=== PATIENT | male | born 1960 | race Caucasian/White ===

== ENCOUNTER 2018-04-30 01:51 | Inpatient (IN) | payer MEDICARE, MEDICAID ==
--- NOTE | 2018-04-30 01:58 | C.PDOC ---
History Of Present Illness As per ems pt became short of breath, that woke him from sleep/. Received 40 mg iv lasix and 1 inch of nitro paste. Placed on bipap, sturating to 100%. Denies any chest pain, but slow to respond. No signs of trauma. Moves all extremities Time Seen by Provider: 04/30/18 01:58 Chief Complaint (Nursing): Respiratory Distress History Per: EMS History/Exam Limitations: clinical condition Onset/Duration Of Symptoms: Days Current Symptoms Are (Timing): Worse Initiating Event: Other Exacerbating Factor(s): Exertion, Laying Flat Current Respiratory Medications: See Home Med List Severity: Severe Pain Scale Rating Of: 8 Associated Symptoms: denies: Fever, Chills Reports Recently: Treated By A Physician Recent travel outside of the [place]: No Additional History Per: EMS Past Medical History Family History: States: No Known Family Hx Review Of Systems Review Of Systems: ROS cannot be obtained secondary to pt's inabilty to answer questions. Physical Exam - Physical Exam Appears: In Acute Distress Skin: Warm, Dry Head: Normacephalic Eye(s): bilateral: Normal Inspection Oral Mucosa: Moist Neck: Supple Chest: Symmetrical Cardiovascular: Rhythm Regular Respiratory: Decreased Breath Sounds, Rales, Rhonchi, No Wheezing Gastrointestinal/Abdominal: Soft, No Tenderness, No Distention Back: Normal Inspection Extremity: Pedal Edema Extremity: Bilateral: Atraumatic Pulses: Left Dorsalis Pedis: Normal, Right Dorsalis Pedis: Normal Neurological/Psych: Oriented x3, Slow To Respond With Command Gait: Unable To Assess ED Course And Treatment - Laboratory Results Result Diagrams: 04/30/18 02:21 04/30/18 02:21 ECG: Interpreted By Me, Viewed By Me ECG Rhythm: Sinus Rhythm (94), Nonspecific Changes (inf lat ischemic changes) O2 Sat by Pulse Oximetry: 100 Pulse Ox Interpretation: Normal Critical Care Time - Critical Care Note Total Time (in mins): 30 Documented critical care: time excludes all time spent performing seperately billable procedures. Disposition Discussed With : Christophe Mckenna Comment: accepted the pt on his service and took over the care at 3:20 AM Doctor Will See Patient In The: Hospital Counseled Patient/Family Regarding: Studies Performed, Diagnosis - Disposition Disposition: HOSPITALIZED Disposition Time: 01:58 Condition: FAIR Forms: [employer] (Romanian) - POA Present On Arrival: Poor Glycemic Control - Clinical Impression Clinical Impression: Congestive heart failure, Respiratory distress, acute Decision To Admit - Pt Status Changed To: Hospital Disposition Of: Inpatient - Admit Certification Admit to Inpatient:: After my assessment, the patient will require hospitalization for at least two midnights. This is because of the severity of symptoms shown, intensity of services needed, and/or the medical risk in this patient being treated as an outpatient. - InPatient: Physician Admission Certification: I certify that this patient requires 2 or more midnights of care for the following reason:: After my assessment, the patient will require hospitalization for at least two midnights. This is because of the severity of symptoms shown, intensity of services needed, and/or the medical risk in this patient being treated as an outpatient. - . Bed Request Type: Telemetry Admitting Physician: Christophe Mckenna Patient Diagnosis: Congestive heart failure, Respiratory distress, acute
[2018-04-30] MEDS: Albuterol-Ipratrop 3 mg / 0.5 (3 ml) UD IH SCH ×2 (02:15→02:30)
[2018-04-30 02:26] LABS: BASO # 0.1 K/uL (0.0-0.2); EOS # 0.2 K/uL (0.0-0.7); HEMOGLOBIN 12.8 g/dL (12.0-18.0); LYMPH # 3.9 K/uL (1.0-4.3); LYMPH % 35.5 % (20.0-40.0); MEAN CELL VOLUME 82.9 fL (80.0-94.0); MEAN CORPUSCULAR HEMOGLOBIN 26.9 pg (27.0-31.0); MEAN CORPUSCULAR HGB CONC 32.4 g/dL (33.0-37.0); MEAN PLATELET VOLUME 10.2 fL (7.2-11.7); MONO # 0.8 K/uL (0.0-0.8); MONO % 6.9 % (0.0-10.0); NEUT # 5.9 K/uL (1.8-7.0); NEUT % 54.6 % (50.0-75.0); NRBC % 0.1 % (0.0-2.0); RBC 4.77 Mil/uL (4.40-5.90); RED CELL DISTRIBUTION WIDTH 15.2 % (11.5-14.5); WHITE BLOOD COUNT 10.9 K/uL (4.8-10.8)
[2018-04-30 02:34] LABS: INR 1.3; PROTHROMBIN TIME 13.8 SECONDS (9.7-12.2)
[2018-04-30 02:36] LABS: ABG ALLEN TEST POS; ARTERIAL BLOOD GAS HCO3 24.6 mmol/L (21-28); ARTERIAL BLOOD GAS O2 SAT 98.8 % (95-98); ARTERIAL BLOOD GAS PCO2 51 mm/Hg (35-45); ARTERIAL BLOOD GAS PH 7.32 (7.35-7.45); ARTERIAL BLOOD GAS PO2 133 mm/Hg (80-100); ARTERIAL BLOOD GAS TCO2 27.9 mmol/L (22-28)
[2018-04-30 02:39] LABS: ALB/GLOB RATIO 1.3 (1.0-2.1); ALBUMIN 4.5 g/dL (3.5-5.0); ALT/SGPT 29 U/L (21-72); AST/SGOT 32 U/L (17-59); BLOOD UREA NITROGEN 19 mg/dL (9-20); CALCIUM 8.2 mg/dl (8.6-10.4); GFR NON-AFRICAN AMERICAN > 60
[2018-04-30 02:50] LABS: B-TYPE NATRIURETIC PEPTIDE 1430 pg/mL (0-900)
[2018-04-30 03:35] LABS: URINE BILIRUBIN NEGATIVE (NEGATIVE); URINE BLOOD NEGATIVE (NEGATIVE); URINE CLARITY Clear (Clear); URINE COLOR Colorless (YELLOW); URINE GLUCOSE (UA) NORMAL (Normal); URINE HYALINE CAST 0-2 /lpf (0-2); URINE LEUKOCYTE ESTERASE NEG Leu/uL (Negative); URINE PROTEIN 2+ mg/dL (NEGATIVE); URINE UROBILINOGEN NORMAL mg/dL (0.2-1.0)
[2018-04-30] MEDS ORDERED: Albuterol-Ipratrop 3 mg / 0.5 (3 ml) UD ONE (04:50)
[2018-04-30] MEDS ORDERED: Enoxaparin 150 mg Syringe SC SCH (10:00)
[2018-04-30] MEDS ORDERED: (Novolin R) Insulin Human Regular 100 units/ml vial SC SCH (11:30)
--- NOTE | 2018-04-30 11:31 | CP.PCM.CON ---
History of Present Illness - History of Present Illness History of Present Illness: Consultation for evaluation of CHF exacerbation HPI: Wander is a 57-year-old male with past medical history significant for CAD sta tus post CABG 13 years ago at [facility] hypertension dyslipidemia diabetes mellitus presented with complains of PND is that woke him up from sleep some sleep at baseline a major flexion class II dyspnea denied having any ischemic symptoms in the past no cardiac workup done follows with Dr. Doll his BNP on presentation was 1430 EKG showed left bundle with left axis deviation with nonspecific ST changes. He was given a dose of IV Lasix in the emergency room with improvement in his symptoms was put on BiPAP. Chest x-ray showed bilateral pulmonary congestions. Symptoms were associated with mild chest heaviness. His home meds include losartan HCTZ Cardizem Synthroid Januvia Plavix omeprazole Lipitor Toprol-XL aspirin metformin albuterol glimepiride and Flovent. Past surgical history significant for CABG x5 no history of angioplasty and stenting questionable obstructive sleep apnea. Review of Systems - Review of Systems Systems not reviewed;Unavailable: Acuity of Condition - EENT Eyes: As Per HPI Ears: As Per HPI Nose/Mouth/Throat: As Per HPI - Cardiovascular Cardiovascular: As Per HPI - Respiratory Respiratory: As Per HPI - Gastrointestinal Gastrointestinal: As Per HPI - Genitourinary Genitourinary: As Per HPI - Reproductive: Male Reproductive:Male: As Per HPI - Musculoskeletal Musculoskeletal: As Per HPI - Integumentary Integumentary: As Per HPI - Neurological Neurological: As Per HPI - Psychiatric Psychiatric: As Per HPI - Endocrine Endocrine: As Per HPI - Hematologic/Lymphatic Hematologic: As Per HPI Past Patient History - Past Social History Smoking Status: Never Smoked - CARDIAC Hx Cardiac Disorders: Yes Hx Hypertension: Yes Other/Comment: "[place] 5yrs ago" as per pt - ENDOCRINE/METABOLIC Hx Endocrine Disorders: Yes Hx Diabetes Mellitus Type 2: Yes - PSYCHIATRIC Hx Substance Use: No - SURGICAL HISTORY Hx Surgeries: Yes Other/Comment: "Multiple Bypasses" - ANESTHESIA Hx Anesthesia: Yes Hx Anesthesia Reactions: No Hx Malignant Hyperthermia: No Meds Allergies/Adverse Reactions: Allergies Allergy/AdvReac Type Severity Reaction Status Date / Time No Known Allergies Allergy Verified 04/30/18 02:02 - Medications Medications: Current Medications Albuterol/Ipratropium (Duoneb 3 Mg/0.5 Mg (3 Ml) Ud) 3 ml INH RQ4 [facility] Clopidogrel Bisulfate (Plavix) 75 mg PO DAILY [facility] Diltiazem HCl (Cardizem Cd) 240 mg PO DAILY [facility] Famotidine (Pepcid) 20 mg PO DAILY [facility] Furosemide (Lasix) 40 mg IVP DAILY [facility] Glimepiride (Amaryl) 2 mg PO DAILY [facility] Heparin Sodium (Porcine) (Heparin) 5,000 units SC Q12 [facility] Home Med (Fluticasone Propionate [Flovent Diskus]) 50 mcg IH DAILY [facility] Hydrochlorothiazide (Hydrodiuril) 25 mg PO DAILY [facility] Ceftriaxone Sodium (Rocephin Iv 1 Gm Duplex) 50 mls @ 50 mls/30 min IVPB Q24H [facility]; Protocol Azithromycin 500 mg/ Sodium (Chloride) 250 mls @ 167 mls/hr IVPB Q24H [facility]; Protocol Insulin Aspart (Novolog) 0 unit SC ACHS [facility]; Protocol Levothyroxine Sodium (Synthroid) 100 mcg PO DAILY@0630 [facility] Losartan Potassium (Cozaar) 50 mg PO DAILY [facility] Metformin HCl (Glucophage) 1,000 mg PO BIDCC [facility] Methylprednisolone (Solu-Medrol) 40 mg IVP Q8 [facility] Metoprolol Succinate (Toprol Xl) 100 mg PO DAILY [facility] Sitagliptin Phosphate (Januvia) 100 mg PO DAILY [facility] Physical Exam - Constitutional Appears: Well - Head Exam Head Exam: ATRAUMATIC, NORMAL INSPECTION, NORMOCEPHALIC - Eye Exam Eye Exam: EOMI, Normal appearance, PERRL Pupil Exam: NORMAL ACCOMODATION, PERRL - ENT Exam ENT Exam: Mucous Membranes Moist, Normal Exam - Neck Exam Neck exam: Positive for: Normal Inspection - Respiratory Exam Respiratory Exam: Clear to Auscultation Bilateral, NORMAL BREATHING PATTERN - Cardiovascular Exam Cardiovascular Exam: REGULAR RHYTHM, RRR, +S1, +S2 - GI/Abdominal Exam GI & Abdominal Exam: Normal Bowel Sounds, Soft. absent: Tenderness - Extremities Exam Extremities exam: Positive for: normal inspection - Back Exam Back exam: NORMAL INSPECTION - Neurological Exam Neurological exam: Alert, CN II-XII Intact, Normal Gait, Oriented x3, Reflexes Normal - Psychiatric Exam Psychiatric exam: Normal Affect, Normal Mood - Skin Skin Exam: Dry, Intact, Normal Color, Warm Results - Vital Signs Recent Vital Signs: Last Vital Signs Temp 97.5 F L 04/30/18 08:18 Pulse 92 H 04/30/18 09:00 Resp 20 04/30/18 08:18 BP 144/82 04/30/18 08:18 Pulse Ox 100 04/30/18 08:18 - Labs Result Diagrams: 04/30/18 02:21 04/30/18 02:21 Labs: Laboratory Results - last 24 hr 04/30/18 04/30/18 04/30/18 02:21 02:21 02:21 WBC 10.9 H RBC 4.77 Hgb 12.8 Hct 39.6 MCV 82.9 MCH 26.9 L MCHC 32.4 L RDW 15.2 H Plt Count 284 MPV 10.2 Neut % (Auto) 54.6 Lymph % (Auto) 35.5 [place] % (Auto) 6.9 Eos % (Auto) 2.0 Baso % (Auto) 1.0 Neut # (Auto) 5.9 Lymph # (Auto) 3.9 [place] # (Auto) 0.8 Eos # (Auto) 0.2 Baso # (Auto) 0.1 PT 13.8 H INR 1.3 APTT 28 Puncture Site pCO2 pO2 HCO3 ABG pH ABG Total CO2 ABG O2 Saturation ABG Base Excess Baldomero Test ABG Potassium A-a O2 Difference Respiratory Index Sodium 141 Chloride 102 Glucose Lactate Vent Mode FiO2 Inspiratory BiPAP Expiratory BiPAP Potassium 4.2 Carbon Dioxide 27 Anion Gap 16 BUN 19 Creatinine 0.8 Est GFR ( Amer) > 60 Est GFR (Non-Af Amer) > 60 Random Glucose 225 H Calcium 8.2 L Magnesium 1.7 Total Bilirubin 0.6 AST 32 ALT 29 Alkaline Phosphatase 70 Troponin I 0.0230 NT-Pro-B Natriuret Pep 1430 H Total Protein 7.8 Albumin 4.5 Globulin 3.4 Albumin/Globulin Ratio 1.3 Arterial Blood Potassium Urine Color Urine Clarity Urine pH Ur Specific [place] Urine Protein Urine Glucose (UA) Urine Ketones Urine Blood Urine Nitrate Urine Bilirubin Urine Urobilinogen Ur Leukocyte Esterase Urine WBC (Auto) Urine RBC (Auto) Hyaline Casts 04/30/18 04/30/18 02:21 03:23 WBC RBC Hgb Hct MCV MCH MCHC RDW Plt Count MPV Neut % (Auto) Lymph % (Auto) [place] % (Auto) Eos % (Auto) Baso % (Auto) Neut # (Auto) Lymph # (Auto) [place] # (Auto) Eos # (Auto) Baso # (Auto) PT INR APTT Puncture Site R rad pCO2 51 H pO2 133 H HCO3 24.6 ABG pH 7.32 L ABG Total CO2 27.9 ABG O2 Saturation 98.8 H ABG Base Excess -0.5 Baldomero Test Pos ABG Potassium 3.0 L A-a O2 Difference 160.0 Respiratory Index 1.2 Sodium 142.0 Chloride 108.0 H Glucose 184 H Lactate 1.1 Vent Mode Bipap FiO2 50.0 Inspiratory BiPAP 10 Expiratory BiPAP 5 Potassium Carbon Dioxide Anion Gap BUN Creatinine Est GFR ( Amer) Est GFR (Non-Af Amer) Random Glucose Calcium Magnesium Total Bilirubin AST ALT Alkaline Phosphatase Troponin I NT-Pro-B Natriuret Pep Total Protein Albumin Globulin Albumin/Globulin Ratio Arterial Blood Potassium 3.0 L Urine Color Colorless Urine Clarity Clear Urine pH 7.0 Ur Specific [place] 1.006 Urine Protein 2+ H Urine Glucose (UA) Normal Urine Ketones Negative Urine Blood Negative Urine Nitrate Negative Urine Bilirubin Negative Urine Urobilinogen Normal Ur Leukocyte Esterase Neg Urine WBC (Auto) < 1 Urine RBC (Auto) 1 Hyaline Casts 0-2 Assessment & Plan (1) Congestive heart failure Assessment and Plan: Echo stress testing IV lasix cont bb, arbs Status: Acute (2) CAD (coronary artery disease) Assessment and Plan: cont asa, plavix cont statins cont bb check FLP Status: Acute (3) Hx of CABG Status: Acute (4) HTN (hypertension) Status: Acute (5) Dyslipidemia Assessment and Plan: chest FLP cont statins Status: Acute (6) Respiratory distress, acute Status: Acute
[2018-04-30] MEDS: diltiaZEM 240 mg/24 Hours CD Cap PO SCH (11:41)
[2018-04-30] MEDS: Levothyroxine 100 MCG TAB PO SCH (11:42)
[2018-04-30] MEDS: Metoprolol Succinate 100 mg XL Tab PO SCH (11:42)
[2018-04-30] MEDS: cefTRIAXone IV 1 gm in Dextros 50 ML IVPB SCH (11:51)
[2018-04-30] MEDS ORDERED: Albuterol-Ipratrop 3 mg / 0.5 (3 ml) UD INH SCH (12:00)
[2018-04-30] MEDS: MethylPREDNISolone 40 mg Vial IVP SCH ×3 (12:10→21:44)
--- NOTE | 2018-04-30 12:47 | RAD ---
Date of service: 04/30/2018 PROCEDURE: CHEST RADIOGRAPH, 1 VIEW HISTORY: SOB COMPARISON: None available. FINDINGS: LUNGS: Clear. PLEURA: No pneumothorax or pleural fluid seen. CARDIOVASCULAR: Mild cardiomegaly. There is calcification of the thoracic aortic arch. Sternotomy wires. No congestive change. OSSEOUS STRUCTURES: No significant abnormalities. VISUALIZED UPPER ABDOMEN: Normal. OTHER FINDINGS: None. IMPRESSION: No active disease.
[2018-04-30] MEDS: (Novolog) Insulin Aspart, Recombinant 100 u/ml 10 ml vial SC SCH ×3 (13:39→21:37)
[2018-04-30] MEDS: Azithromycin 500 MG in Sodium Chloride 0.9% 250 ML IVPB SCH (13:41)
[2018-04-30] MEDS: Albuterol-Ipratrop 3 mg / 0.5 (3 ml) UD INH SCH ×3 (15:00→19:54)
--- NOTE | 2018-04-30 15:42 | CP.PCM.HP ---
Past Patient History - Past Medical History & Family History Past Medical History?: Yes - Past Social History Smoking Status: Never Smoked - CARDIAC Hx Hypertension: Yes - PULMONARY Hx Respiratory Disorders: No - NEUROLOGICAL Hx Neurological Disorder: No - HEENT Hx HEENT Problems: No - RENAL Hx Chronic Kidney Disease: No - ENDOCRINE/METABOLIC Hx Endocrine Disorders: Yes Hx Diabetes Mellitus Type 2: Yes - HEMATOLOGICAL/ONCOLOGICAL Hx Blood Disorders: No - INTEGUMENTARY Hx Dermatological Problems: No - MUSCULOSKELETAL/RHEUMATOLOGICAL Hx Musculoskeletal Disorders: No Hx Falls: No - GASTROINTESTINAL Hx Gastrointestinal Disorders: No - GENITOURINARY/GYNECOLOGICAL Hx Genitourinary Disorders: No - PSYCHIATRIC Hx Psychophysiologic Disorder: No Hx Substance Use: No - SURGICAL HISTORY Hx Surgeries: Yes Hx Coronary Artery Bypass Graft: Yes Other/Comment: "Multiple Bypasses" - ANESTHESIA Hx Anesthesia: Yes Hx Anesthesia Reactions: No Hx Malignant Hyperthermia: No Has any member of the family had a problem w/ anesthesia?: No Meds Allergies/Adverse Reactions: Allergies Allergy/AdvReac Type Severity Reaction Status Date / Time No Known Allergies Allergy Verified 04/30/18 02:02 Physical Exam - Constitutional Appears: Well - Head Exam Head Exam: ATRAUMATIC, NORMAL INSPECTION, NORMOCEPHALIC - Eye Exam Eye Exam: EOMI, Normal appearance, PERRL Pupil Exam: NORMAL ACCOMODATION, PERRL - ENT Exam ENT Exam: Mucous Membranes Moist, Normal Exam - Neck Exam Neck exam: Positive for: Normal Inspection - Respiratory Exam Respiratory Exam: Decreased Breath Sounds - Cardiovascular Exam Cardiovascular Exam: REGULAR RHYTHM, +S1, +S2 - GI/Abdominal Exam GI & Abdominal Exam: Diminished Bowel Sounds, Soft - Rectal Exam Rectal Exam: Deferred Results - Vital Signs Recent Vital Signs: Last Vital Signs Temp 97.5 F L 04/30/18 08:18 Pulse 70 04/30/18 13:50 Resp 20 04/30/18 08:18 BP 139/75 04/30/18 11:44 Pulse Ox 100 04/30/18 13:50 - Labs Result Diagrams: 04/30/18 02:21 04/30/18 02:21 Labs: Laboratory Results - last 24 hr 04/30/18 04/30/18 04/30/18 02:21 02:21 02:21 WBC 10.9 H RBC 4.77 Hgb 12.8 Hct 39.6 MCV 82.9 MCH 26.9 L MCHC 32.4 L RDW 15.2 H Plt Count 284 MPV 10.2 Neut % (Auto) 54.6 Lymph % (Auto) 35.5 [place] % (Auto) 6.9 Eos % (Auto) 2.0 Baso % (Auto) 1.0 Neut # (Auto) 5.9 Lymph # (Auto) 3.9 [place] # (Auto) 0.8 Eos # (Auto) 0.2 Baso # (Auto) 0.1 PT 13.8 H INR 1.3 APTT 28 Puncture Site pCO2 pO2 HCO3 ABG pH ABG Total CO2 ABG O2 Saturation ABG Base Excess Baldomero Test ABG Potassium A-a O2 Difference Respiratory Index Sodium 141 Chloride 102 Glucose Lactate Vent Mode FiO2 Inspiratory BiPAP Expiratory BiPAP Potassium 4.2 Carbon Dioxide 27 Anion Gap 16 BUN 19 Creatinine 0.8 Est GFR ( Amer) > 60 Est GFR (Non-Af Amer) > 60 Random Glucose 225 H Calcium 8.2 L Magnesium 1.7 Total Bilirubin 0.6 AST 32 ALT 29 Alkaline Phosphatase 70 Troponin I 0.0230 NT-Pro-B Natriuret Pep 1430 H Total Protein 7.8 Albumin 4.5 Globulin 3.4 Albumin/Globulin Ratio 1.3 Arterial Blood Potassium Urine Color Urine Clarity Urine pH Ur Specific [place] Urine Protein Urine Glucose (UA) Urine Ketones Urine Blood Urine Nitrate Urine Bilirubin Urine Urobilinogen Ur Leukocyte Esterase Urine WBC (Auto) Urine RBC (Auto) Hyaline Casts 04/30/18 04/30/18 02:21 03:23 WBC RBC Hgb Hct MCV MCH MCHC RDW Plt Count MPV Neut % (Auto) Lymph % (Auto) [place] % (Auto) Eos % (Auto) Baso % (Auto) Neut # (Auto) Lymph # (Auto) [place] # (Auto) Eos # (Auto) Baso # (Auto) PT INR APTT Puncture Site R rad pCO2 51 H pO2 133 H HCO3 24.6 ABG pH 7.32 L ABG Total CO2 27.9 ABG O2 Saturation 98.8 H ABG Base Excess -0.5 Baldomero Test Pos ABG Potassium 3.0 L A-a O2 Difference 160.0 Respiratory Index 1.2 Sodium 142.0 Chloride 108.0 H Glucose 184 H Lactate 1.1 Vent Mode Bipap FiO2 50.0 Inspiratory BiPAP 10 Expiratory BiPAP 5 Potassium Carbon Dioxide Anion Gap BUN Creatinine Est GFR ( Amer) Est GFR (Non-Af Amer) Random Glucose Calcium Magnesium Total Bilirubin AST ALT Alkaline Phosphatase Troponin I NT-Pro-B Natriuret Pep Total Protein Albumin Globulin Albumin/Globulin Ratio Arterial Blood Potassium 3.0 L Urine Color Colorless Urine Clarity Clear Urine pH 7.0 Ur Specific [place] 1.006 Urine Protein 2+ H Urine Glucose (UA) Normal Urine Ketones Negative Urine Blood Negative Urine Nitrate Negative Urine Bilirubin Negative Urine Urobilinogen Normal Ur Leukocyte Esterase Neg Urine WBC (Auto) < 1 Urine RBC (Auto) 1 Hyaline Casts 0-2
--- NOTE | 2018-04-30 18:12 | CP.PCM.CON ---
History of Present Illness - History of Present Illness History of Present Illness: Pulmonology consult- chf, bipap, and respiratory distress HPI 57 year old male with pmh CHF, CAD post CABG, DM presented to ED with acute onset SOB that woke him from sleep. Patient states he was feeling slightly short of breath "as if he had a cold" for 2-3 weeks until night of admission when he became acutely short of breath. SOB worsened by laying flat and improved slightly with tripod positioning. Patient was started on bipap and arrived on floor on bipap. Ambulating with PT with spo2 96% RA. Denied fever, chills, chest pain, cough. Medications- HCTZ 25mg, diltiazem 240mg, Januvia 100mg, omeprazole 20mg, metoprolol 100mg bid, metformin 1000mg bid, losartan 50mg, levothyroxine 100mcg, hydrocortisone 30gm RC bid, glimepiride 2mg daily, Plavix 75mg, atorvastatin 80mg, ASA 325mg, ventolin 0.09mg IH q4 Allergies- NKDA PMH- as above PSH- CABG Review of Systems - Review of Systems All systems: reviewed and no additional remarkable complaints except (shortness of breath) Past Patient History - Past Medical History & Family History Past Medical History?: Yes - Past Social History Smoking Status: Never Smoked - CARDIAC Hx Hypertension: Yes - PULMONARY Hx Respiratory Disorders: No - NEUROLOGICAL Hx Neurological Disorder: No - HEENT Hx HEENT Problems: No - RENAL Hx Chronic Kidney Disease: No - ENDOCRINE/METABOLIC Hx Endocrine Disorders: Yes Hx Diabetes Mellitus Type 2: Yes - HEMATOLOGICAL/ONCOLOGICAL Hx Blood Disorders: No - INTEGUMENTARY Hx Dermatological Problems: No - MUSCULOSKELETAL/RHEUMATOLOGICAL Hx Musculoskeletal Disorders: No Hx Falls: No - GASTROINTESTINAL Hx Gastrointestinal Disorders: No - GENITOURINARY/GYNECOLOGICAL Hx Genitourinary Disorders: No - PSYCHIATRIC Hx Psychophysiologic Disorder: No Hx Substance Use: No - SURGICAL HISTORY Hx Surgeries: Yes Hx Coronary Artery Bypass Graft: Yes Other/Comment: "Multiple Bypasses" - ANESTHESIA Hx Anesthesia: Yes Hx Anesthesia Reactions: No Hx Malignant Hyperthermia: No Has any member of the family had a problem w/ anesthesia?: No Meds Allergies/Adverse Reactions: Allergies Allergy/AdvReac Type Severity Reaction Status Date / Time No Known Allergies Allergy Verified 04/30/18 02:02 - Medications Medications: Current Medications Albuterol/Ipratropium (Duoneb 3 Mg/0.5 Mg (3 Ml) Ud) 3 ml INH RQ4 [facility] Aspirin (Aspirin) 325 mg PO DAILY [facility] Last Admin: 04/30/18 13:39 Dose: 325 mg Budesonide (Pulmicort Respules) 0.25 mg INH RQ12 [facility] Clopidogrel Bisulfate (Plavix) 75 mg PO DAILY [facility] Last Admin: 04/30/18 11:41 Dose: 75 mg Diltiazem HCl (Cardizem Cd) 240 mg PO DAILY [facility] Last Admin: 04/30/18 11:41 Dose: 240 mg Famotidine (Pepcid) 20 mg PO DAILY [facility] Last Admin: 04/30/18 11:52 Dose: 20 mg Furosemide (Lasix) 40 mg IVP DAILY [facility] Last Admin: 04/30/18 11:44 Dose: 40 mg Glimepiride (Amaryl) 2 mg PO DAILY [facility] Last Admin: 04/30/18 11:42 Dose: 2 mg Heparin Sodium (Porcine) (Heparin) 5,000 units SC Q12 [facility] Last Admin: 04/30/18 11:43 Dose: 5,000 units Hydrochlorothiazide (Hydrodiuril) 25 mg PO DAILY [facility] Last Admin: 04/30/18 11:42 Dose: 25 mg Ceftriaxone Sodium (Rocephin Iv 1 Gm Duplex) 50 mls @ 50 mls/30 min IVPB Q24H [facility]; Protocol Last Admin: 04/30/18 11:51 Dose: 50 mls/30 min Azithromycin 500 mg/ Sodium (Chloride) 250 mls @ 167 mls/hr IVPB Q24H [facility]; Protocol Last Admin: 04/30/18 13:41 Dose: 167 mls/hr Insulin Aspart (Novolog) 0 unit SC ACHS [facility]; Protocol Last Admin: 04/30/18 17:01 Dose: 1 unit Levothyroxine Sodium (Synthroid) 100 mcg PO DAILY@0630 [facility] Last Admin: 04/30/18 11:42 Dose: 100 mcg Losartan Potassium (Cozaar) 50 mg PO DAILY [facility] Last Admin: 04/30/18 11:42 Dose: 50 mg Metformin HCl (Glucophage) 1,000 mg PO BIDCC [facility] Last Admin: 04/30/18 17:42 Dose: 1,000 mg Methylprednisolone (Solu-Medrol) 40 mg IVP Q8 [facility] Last Admin: 04/30/18 13:41 Dose: 40 mg Metoprolol Succinate (Toprol Xl) 100 mg PO DAILY [facility] Last Admin: 04/30/18 11:42 Dose: 100 mg Pneumococcal Polyvalent Vaccine (Pneumovax 23 Vaccine) 0.5 ml IM .ONCE ONE Stop: 05/02/18 10:01 Sitagliptin Phosphate (Januvia) 100 mg PO DAILY [facility] Last Admin: 04/30/18 11:41 Dose: 100 mg Physical Exam - Head Exam Head Exam: ATRAUMATIC, NORMOCEPHALIC - ENT Exam ENT Exam: Mucous Membranes Moist - Neck Exam Neck exam: Positive for: Normal Inspection - Respiratory Exam Respiratory Exam: Clear to Auscultation Bilateral - Cardiovascular Exam Cardiovascular Exam: REGULAR RHYTHM Results - Vital Signs Recent Vital Signs: Last Vital Signs Temp 98.7 F 04/30/18 15:00 Pulse 65 04/30/18 15:00 Resp 20 04/30/18 15:00 BP 136/66 04/30/18 15:00 Pulse Ox 95 04/30/18 15:00 - Labs Result Diagrams: 04/30/18 02:21 04/30/18 02:21 Labs: Laboratory Results - last 24 hr 04/30/18 04/30/18 04/30/18 02:21 02:21 02:21 WBC 10.9 H RBC 4.77 Hgb 12.8 Hct 39.6 MCV 82.9 MCH 26.9 L MCHC 32.4 L RDW 15.2 H Plt Count 284 MPV 10.2 Neut % (Auto) 54.6 Lymph % (Auto) 35.5 [place] % (Auto) 6.9 Eos % (Auto) 2.0 Baso % (Auto) 1.0 Neut # (Auto) 5.9 Lymph # (Auto) 3.9 [place] # (Auto) 0.8 Eos # (Auto) 0.2 Baso # (Auto) 0.1 PT 13.8 H INR 1.3 APTT 28 Puncture Site pCO2 pO2 HCO3 ABG pH ABG Total CO2 ABG O2 Saturation ABG Base Excess Baldomero Test ABG Potassium A-a O2 Difference Respiratory Index Sodium 141 Chloride 102 Glucose Lactate Vent Mode FiO2 Inspiratory BiPAP Expiratory BiPAP Potassium 4.2 Carbon Dioxide 27 Anion Gap 16 BUN 19 Creatinine 0.8 Est GFR ( Amer) > 60 Est GFR (Non-Af Amer) > 60 POC Glucose (mg/dL) Random Glucose 225 H Calcium 8.2 L Magnesium 1.7 Total Bilirubin 0.6 AST 32 ALT 29 Alkaline Phosphatase 70 Troponin I 0.0230 NT-Pro-B Natriuret Pep 1430 H Total Protein 7.8 Albumin 4.5 Globulin 3.4 Albumin/Globulin Ratio 1.3 Arterial Blood Potassium Urine Color Urine Clarity Urine pH Ur Specific Tyner Urine Protein Urine Glucose (UA) Urine Ketones Urine Blood Urine Nitrate Urine Bilirubin Urine Urobilinogen Ur Leukocyte Esterase Urine WBC (Auto) Urine RBC (Auto) Hyaline Casts 04/30/18 04/30/18 04/30/18 02:21 03:23 11:03 WBC RBC Hgb Hct MCV MCH MCHC RDW Plt Count MPV Neut % (Auto) Lymph % (Auto) [place] % (Auto) Eos % (Auto) Baso % (Auto) Neut # (Auto) Lymph # (Auto) [place] # (Auto) Eos # (Auto) Baso # (Auto) PT INR APTT Puncture Site R rad pCO2 51 H pO2 133 H HCO3 24.6 ABG pH 7.32 L ABG Total CO2 27.9 ABG O2 Saturation 98.8 H ABG Base Excess -0.5 Baldomero Test Pos ABG Potassium 3.0 L A-a O2 Difference 160.0 Respiratory Index 1.2 Sodium 142.0 Chloride 108.0 H Glucose 184 H Lactate 1.1 Vent Mode Bipap FiO2 50.0 Inspiratory BiPAP 10 Expiratory BiPAP 5 Potassium Carbon Dioxide Anion Gap BUN Creatinine Est GFR ( Amer) Est GFR (Non-Af Amer) POC Glucose (mg/dL) 153 H Random Glucose Calcium Magnesium Total Bilirubin AST ALT Alkaline Phosphatase Troponin I NT-Pro-B Natriuret Pep Total Protein Albumin Globulin Albumin/Globulin Ratio Arterial Blood Potassium 3.0 L Urine Color Colorless Urine Clarity Clear Urine pH 7.0 Ur Specific Tyner 1.006 Urine Protein 2+ H Urine Glucose (UA) Normal Urine Ketones Negative Urine Blood Negative Urine Nitrate Negative Urine Bilirubin Negative Urine Urobilinogen Normal Ur Leukocyte Esterase Neg Urine WBC (Auto) < 1 Urine RBC (Auto) 1 Hyaline Casts 0-2 04/30/18 16:16 WBC RBC Hgb Hct MCV MCH MCHC RDW Plt Count MPV Neut % (Auto) Lymph % (Auto) [place] % (Auto) Eos % (Auto) Baso % (Auto) Neut # (Auto) Lymph # (Auto) [place] # (Auto) Eos # (Auto) Baso # (Auto) PT INR APTT Puncture Site pCO2 pO2 HCO3 ABG pH ABG Total CO2 ABG O2 Saturation ABG Base Excess Baldomero Test ABG Potassium A-a O2 Difference Respiratory Index Sodium Chloride Glucose Lactate Vent Mode FiO2 Inspiratory BiPAP Expiratory BiPAP Potassium Carbon Dioxide Anion Gap BUN Creatinine Est GFR ( Amer) Est GFR (Non-Af Amer) POC Glucose (mg/dL) 184 H Random Glucose Calcium Magnesium Total Bilirubin AST ALT Alkaline Phosphatase Troponin I NT-Pro-B Natriuret Pep Total Protein Albumin Globulin Albumin/Globulin Ratio Arterial Blood Potassium Urine Color Urine Clarity Urine pH Ur Specific Tyner Urine Protein Urine Glucose (UA) Urine Ketones Urine Blood Urine Nitrate Urine Bilirubin Urine Urobilinogen Ur Leukocyte Esterase Urine WBC (Auto) Urine RBC (Auto) Hyaline Casts Assessment & Plan (1) Congestive heart failure Status: Acute Comment: continue diuretics. Cardiac workup. Nebulizer treatment. PFTs as outpatient (2) CAD (coronary artery disease) Status: Acute
--- NOTE | 2018-04-30 19:51 | CARD ---
APPROVED REPORT Date of service: 04/30/2018 EXAM: Two-dimensional and M-mode echocardiogram with Doppler and color Doppler. INDICATION CAD Congestive Heart Failure Surgery/Intervention CABG: Date: 13 years ago RISK FACTORS Hypertension Diabetes 2D DIMENSIONS IVSd1.2 (0.7-1.1cm)Aortic Root (2D)3.0 (2.0-3.7cm) LVDd6.2 (3.9-5.9cm)PWd1.1 (0.7-1.1cm) LA [id number] (18-58mL)LVDs4.8 (2.5-4.0cm) FS (%) 22.6 %LVEF (%)54.0 (>50%) LVEF (Jade's)50 %IVC0.00 cm M-Mode DIMENSIONS RVDd2.35 (2.1-3.2cm)Left Atrium (MM)4.68 (2.5-4.0cm) IVSd0.82 (0.7-1.1cm)Aortic Root3.06 (2.2-3.7cm) LVDd5.65 (4.0-5.6cm)Aortic Cusp Exc.1.95 (1.5-2.0cm) PWd0.87 (0.7-1.1cm)FS (%) 22 % LVDs4.41 (2.0-3.8cm)TAPSE14.84 cm LVEF (%)53 (>50%) Mitral Valve MV E Slelkeyr601.4cm/sMV A Dtjixupd76.3cm/sE/A ratio3.4 INFS278.24 cm/s TDI Lateral E' Peak V13.90cm/sMedial E' Peak V4.80cm/sE/Lateral E'10.7 E/Medial E'31.1 Tricuspid Valve TR Peak Ehzamhqd960gy/sTR Peak Gr.[id number] LEFT VENTRICLE The Left Ventricle is mildly dilated. There is moderate concentric left ventricular hypertrophy. The left ventricular function is mildly reduced. The left ventricular ejection fraction is abut 45%. The apical-septal, apcial-anteroseptal, and inferoapcial yancey are akinetic. Transmitral Doppler flow pattern is Grade III-restrictive diastolic dysfunction. No left ventricle thrombus noted on this study. There is no ventricular septal defect visualized. There is no left ventricular aneurysm. There is no mass noted in the left ventricle. RIGHT VENTRICLE The right ventricle is normal size. There is normal right ventricular wall thickness. The right ventricular systolic function is normal. ATRIA The left atrial voulme index is markedly dilated. The right atrium size is normal. The interatrial septum is intact with no evidence for an atrial septal defect. AORTIC VALVE The aortic valve is normal in structure and function. No aortic regurgitation is present. There is no aortic valvular stenosis. There is no aortic valvular vegetation. MITRAL VALVE The mitral valve is normal in structure and function. There is no evidence of mitral valve prolapse. There is no mitral valve stenosis. There is mild mitral valve regurgitation noted. TRICUSPID VALVE The tricuspid valve is normal in structure and function. There is mild tricuspid valve regurgitation noted. Estimated systolic pulmonary artery pressure is 52 mm Hg. There is no tricuspid valve prolapse or vegetation. There is no tricuspid valve stenosis. PULMONIC VALVE The pulmonary valve is normal in structure and function. There is mild pulmonic valvular regurgitation. There is no pulmonic valvular stenosis. GREAT VESSELS The aortic root is normal in size. The ascending aorta is normal in size. The pulmonary artery is normal. The IVC is n dilated and collapses <50% with inspiration. PERICARDIAL EFFUSION The pericardium appears normal. There is no pleural effusion. <Conclusion> The Left Ventricle is mildly dilated. The apical-septal, apcial-anteroseptal, and inferoapcial yancey are akinetic. The left ventricular function is mildly reduced. The left ventricular ejection fraction is abut 45%. Transmitral Doppler flow pattern is Grade III-restrictive diastolic dysfunction. The left atrial voulme index is markedly dilated. There is mild mitral valve regurgitation noted. Moderate pulmonary HTN.
[2018-04-30] MEDS: Budesonide 0.25 mg/2 ml Inhal Susp UD INH SCH (19:54)
[2018-05-01 00:12] VITALS: RESP 20
[2018-05-01] MEDS: Albuterol-Ipratrop 3 mg / 0.5 (3 ml) UD INH SCH ×6 (03:24→19:36)
[2018-05-01] MEDS: Levothyroxine 100 MCG TAB PO SCH (06:38)
[2018-05-01] MEDS: MethylPREDNISolone 40 mg Vial IVP SCH ×3 (06:42→21:33)
[2018-05-01] MEDS: Budesonide 0.25 mg/2 ml Inhal Susp UD INH SCH ×2 (07:15→19:36)
[2018-05-01] MEDS: (Novolog) Insulin Aspart, Recombinant 100 u/ml 10 ml vial SC SCH ×4 (08:45→21:31)
[2018-05-01] MEDS: Metoprolol Succinate 100 mg XL Tab PO SCH (10:57)
[2018-05-01] MEDS: diltiaZEM 240 mg/24 Hours CD Cap PO SCH (10:57)
[2018-05-01] MEDS: cefTRIAXone IV 1 gm in Dextros 50 ML IVPB SCH (11:00)
[2018-05-01] MEDS: Azithromycin 500 MG in Sodium Chloride 0.9% 250 ML IVPB SCH (13:00)
--- NOTE | 2018-05-01 14:07 | CP.PCM.PN ---
Subjective - Date & Time of Evaluation Date of Evaluation: 05/01/18 Time of Evaluation: 08:45 - Subjective Subjective: clinically same Objective - Vital Signs/Intake and Output Vital Signs (last 24 hours): Temp Pulse Resp BP Pulse Ox 97.7 F 90 20 158/86 H 98 05/01/18 07:18 05/01/18 07:18 05/01/18 07:18 05/01/18 10:56 05/01/18 07:18 Intake and Output: 05/01/18 05/01/18 06:59 18:59 Intake Total 100 Output Total 600 Balance -500 - Medications Medications: Current Medications Albuterol/Ipratropium (Duoneb 3 Mg/0.5 Mg (3 Ml) Ud) 3 ml INH RQ4 [facility] Last Admin: 05/01/18 11:00 Dose: Not Given Aspirin (Aspirin) 325 mg PO DAILY [facility] Last Admin: 05/01/18 10:57 Dose: 325 mg Budesonide (Pulmicort Respules) 0.25 mg INH RQ12 [facility] Last Admin: 05/01/18 07:15 Dose: Not Given Clopidogrel Bisulfate (Plavix) 75 mg PO DAILY [facility] Last Admin: 05/01/18 10:57 Dose: 75 mg Diltiazem HCl (Cardizem Cd) 240 mg PO DAILY [facility] Last Admin: 05/01/18 10:57 Dose: 240 mg Famotidine (Pepcid) 20 mg PO DAILY [facility] Last Admin: 05/01/18 10:57 Dose: 20 mg Furosemide (Lasix) 40 mg IVP DAILY [facility] Last Admin: 05/01/18 10:56 Dose: 40 mg Glimepiride (Amaryl) 2 mg PO DAILY [facility] Last Admin: 05/01/18 10:57 Dose: 2 mg Heparin Sodium (Porcine) (Heparin) 5,000 units SC Q12 [facility] Last Admin: 05/01/18 10:56 Dose: 5,000 units Hydrochlorothiazide (Hydrodiuril) 25 mg PO DAILY [facility] Last Admin: 05/01/18 10:57 Dose: 25 mg Insulin Aspart (Novolog) 0 unit SC ACHS [facility]; Protocol Last Admin: 05/01/18 12:40 Dose: 6 unit Levothyroxine Sodium (Synthroid) 100 mcg PO DAILY@0630 [facility] Last Admin: 05/01/18 06:38 Dose: 100 mcg Losartan Potassium (Cozaar) 50 mg PO DAILY [facility] Last Admin: 05/01/18 10:57 Dose: 50 mg Metformin HCl (Glucophage) 1,000 mg PO BIDCC [facility] Last Admin: 05/01/18 10:57 Dose: 1,000 mg Methylprednisolone (Solu-Medrol) 40 mg IVP Q8 [facility] Last Admin: 05/01/18 13:10 Dose: 40 mg Metoprolol Succinate (Toprol Xl) 100 mg PO DAILY [facility] Last Admin: 05/01/18 10:57 Dose: 100 mg Pneumococcal Polyvalent Vaccine (Pneumovax 23 Vaccine) 0.5 ml IM .ONCE ONE Stop: 05/02/18 10:01 Sitagliptin Phosphate (Januvia) 100 mg PO DAILY [facility] Last Admin: 05/01/18 10:57 Dose: 100 mg - Labs Labs: 04/30/18 02:21 04/30/18 02:21 PT 13.8 SECONDS (9.7-12.2) H 04/30/18 02:21 INR 1.3 04/30/18 02:21 APTT 28 SECONDS (21-34) 04/30/18 02:21 - Constitutional Appears: Well - Head Exam Head Exam: ATRAUMATIC, NORMAL INSPECTION, NORMOCEPHALIC - Eye Exam Eye Exam: EOMI, Normal appearance, PERRL Pupil Exam: NORMAL ACCOMODATION, PERRL - ENT Exam ENT Exam: Mucous Membranes Moist, Normal Exam - Neck Exam Neck Exam: Full ROM, Normal Inspection. absent: Lymphadenopathy - Respiratory Exam Respiratory Exam: Decreased Breath Sounds - Cardiovascular Exam Cardiovascular Exam: REGULAR RHYTHM, +S1, +S2 - GI/Abdominal Exam GI & Abdominal Exam: Soft, Diminished Bowel Sounds - Rectal Exam Rectal Exam: Deferred
--- NOTE | 2018-05-01 22:32 | CARD ---
APPROVED REPORT Date of service: 04/30/2018 EKG Measurement Heart [id number] ID [id number] <Conclusion> Normal sinus rhythm Possible Left atrial enlargement Possible Inferior infarct, age undetermined Anterior infarct, age undetermined Abnormal ECG
--- NOTE | 2018-05-01 22:58 | CP.PCM.PN ---
Subjective - Date & Time of Evaluation Date of Evaluation: 05/01/18 Time of Evaluation: 22:57 - Subjective Subjective: Pulmonary Follow up, Covering Dr Mobley The patient was Seen/interviewed and examined by me at the bedside, Medical records reviewed and Management issues were discussed and formulated with the house staff. Events reviewed 57 year old male with pmh CHF, CAD post CABG, DM consulted for chf, bipap, and respiratory distress. Patient states he was feeling slightly short of breath for 2-3 weeks until night of admission when he became acutely short of breath. SOB woke SOB worsened by laying flat and improved slightly with tripod positioning. Patient was started on bipap in ED and arrived on floor on bipap. No complaints with breathing today. Off Bipap, on room air. Denied fever, chills, chest pain, cough. Patient examined at bedside, no acute distress. Resting comfortably in bed. Afebrile. On room air. Clear to auscultation. No wheeze, rales, rhonchi. I/O= -720ml CXR- no pneumothorax, no pleural effusion, lungs clear CHF Acute respiratory acidosis on admission Sleep apnea Follow results of myocardial perfusion study performed today Continue nebulizer Continue antibiotics, Continue diuretics, Continue VTE prophylaxis Continue medical management PFTs outpatient to R/O COPD Contact social media coordinator for CPAP machine Objective - Vital Signs/Intake and Output Vital Signs (last 24 hours): Temp Pulse Resp BP Pulse Ox 98.1 F 75 20 129/60 94 L 05/01/18 16:00 05/01/18 16:00 05/01/18 16:00 05/01/18 16:00 05/01/18 16:00 - Medications Medications: Current Medications Albuterol/Ipratropium (Duoneb 3 Mg/0.5 Mg (3 Ml) Ud) 3 ml INH RQ4 [facility] Last Admin: 05/01/18 19:36 Dose: Not Given Aspirin (Aspirin) 325 mg PO DAILY [facility] Last Admin: 05/01/18 10:57 Dose: 325 mg Budesonide (Pulmicort Respules) 0.25 mg INH RQ12 [facility] Last Admin: 05/01/18 19:36 Dose: Not Given Clopidogrel Bisulfate (Plavix) 75 mg PO DAILY [facility] Last Admin: 05/01/18 10:57 Dose: 75 mg Diltiazem HCl (Cardizem Cd) 240 mg PO DAILY [facility] Last Admin: 05/01/18 10:57 Dose: 240 mg Famotidine (Pepcid) 20 mg PO DAILY [facility] Last Admin: 05/01/18 10:57 Dose: 20 mg Furosemide (Lasix) 40 mg IVP DAILY [facility] Last Admin: 05/01/18 10:56 Dose: 40 mg Glimepiride (Amaryl) 2 mg PO DAILY [facility] Last Admin: 05/01/18 10:57 Dose: 2 mg Heparin Sodium (Porcine) (Heparin) 5,000 units SC Q12 [facility] Last Admin: 05/01/18 21:32 Dose: 5,000 units Hydrochlorothiazide (Hydrodiuril) 25 mg PO DAILY [facility] Last Admin: 05/01/18 10:57 Dose: 25 mg Insulin Aspart (Novolog) 0 unit SC ACHS [facility]; Protocol Last Admin: 05/01/18 21:31 Dose: Not Given Levothyroxine Sodium (Synthroid) 100 mcg PO DAILY@0630 [facility] Last Admin: 05/01/18 06:38 Dose: 100 mcg Losartan Potassium (Cozaar) 50 mg PO DAILY [facility] Last Admin: 05/01/18 10:57 Dose: 50 mg Metformin HCl (Glucophage) 1,000 mg PO BIDCC [facility] Last Admin: 05/01/18 17:48 Dose: 1,000 mg Methylprednisolone (Solu-Medrol) 40 mg IVP Q8 [facility] Last Admin: 05/01/18 21:33 Dose: 40 mg Metoprolol Succinate (Toprol Xl) 100 mg PO DAILY [facility] Last Admin: 05/01/18 10:57 Dose: 100 mg Pneumococcal Polyvalent Vaccine (Pneumovax 23 Vaccine) 0.5 ml IM .ONCE ONE Stop: 05/02/18 10:01 Sitagliptin Phosphate (Januvia) 100 mg PO DAILY [facility] Last Admin: 05/01/18 10:57 Dose: 100 mg - Labs Labs: 04/30/18 02:21 04/30/18 02:21 PT 13.8 SECONDS (9.7-12.2) H 04/30/18 02:21 INR 1.3 04/30/18 02:21 APTT 28 SECONDS (21-34) 04/30/18 02:21 - Constitutional Appears: Well, Non-toxic - Head Exam Head Exam: ATRAUMATIC, NORMAL INSPECTION - Eye Exam Eye Exam: EOMI, Normal appearance. absent: Conjunctival injection - Neck Exam Neck Exam: Full ROM - Respiratory Exam Respiratory Exam: Accessory Muscle Use, Prolonged Expiratory Phase, Wheezes. absent: Rales, Rhonchi - Cardiovascular Exam Cardiovascular Exam: REGULAR RHYTHM, +S1, +S2. absent: Murmur - GI/Abdominal Exam GI & Abdominal Exam: Soft, Normal Bowel Sounds. absent: Tenderness - Extremities Exam Extremities Exam: Full ROM, Normal Capillary Refill, Normal Inspection. absent: Calf Tenderness, Joint Swelling, Pedal Edema, Tenderness - Back Exam Back Exam: absent: CVA tenderness (L), CVA tenderness (R) - Neurological Exam Neurological Exam: Alert, Awake, Oriented x3 Assessment and Plan (1) COPD (chronic obstructive pulmonary disease) Status: Acute (2) CAD (coronary artery disease) Status: Acute (3) Congestive heart failure Status: Acute (4) Respiratory distress, acute Status: Acute
[2018-05-02] MEDS: Albuterol-Ipratrop 3 mg / 0.5 (3 ml) UD INH SCH ×6 (00:56→19:09)
[2018-05-02] MEDS: Levothyroxine 100 MCG TAB PO SCH (06:06)
[2018-05-02] MEDS: MethylPREDNISolone 40 mg Vial IVP SCH (06:06)
[2018-05-02] MEDS: Budesonide 0.25 mg/2 ml Inhal Susp UD INH SCH ×2 (07:35→19:10)
[2018-05-02] MEDS: (Novolog) Insulin Aspart, Recombinant 100 u/ml 10 ml vial SC SCH ×4 (09:00→22:15)
--- NOTE | 2018-05-02 09:06 | CARD ---
APPROVED REPORT Date of service: 05/01/2018 Protocol: LEXISCAN Test Type: LEXISCAN STRESS Test Indications: CHF Medications: LIST Target HR: 165 bpm Resting ECG: left bundle branch block incomplete Resting Heart Rate: 74 bpm Resting Blood Pressure: 138/80mmHg submaximum (85%): 140 bpm TEST SUMMARY POSTINFSNHYPERV.01:380.00..80.1. INFUSIONDOSE 100:[id number]/80.2. CRPHOANPL44:380.00..80.1. PROCEDURE Pharmacologic stress testing was performed using 0.4mg per 5ml of regadenoson given intravenously over 7-10 seconds. POST EXERCISE Reason for Termination: Protocol Completed Target HR: No Max HR: 68 bpm 52% of Maximum Predicted HR: 165 bpm Exercise duration: 00:30 min:sec, 0 Stage Exercise capacity: 1.0METs Max Blood Pressure: 140/80mmHg Blood Pressure response to exercise: normal resting BP - appropriate response Heart Rate response to exercise: attenuated secondary to medication Chest Pain: No, none Angina index: 0 Arrhythmia: No, none ST Change: No, none Deviation: 0 mm EXAM: Myocardial Perfusion REST/STRESS Imaging Protocol The imaging protocol used to acquire images was Rest Tc-99m/stress Tc-99m 1 day Rest Spect myocardial perfusion imaging was performed in supine position 45 minutes following the injection of 12.5 mCi of Tc-99 Myoview. Gated Stress Spect was performed 45 minutes after intravenous 32.4 mCi Tc-99 Myoview injection. The images were gated to evaluate regional wall motion and calculate ventricular ejection fraction.Images were reconstructed using backfilter projection method in short horizontal and verticle long axis. Spect slices were generated. RESTING DATA JXP626.49mmCF2.10L/min QLT185.00mlMyocardial Mmhm492.00g Av. Heart Rate67.00bpm EF36.00% STRESS DATA MYO254.33ktIG1.50L/min OVK512.00mlMyocardial Hvuf502.00g EF40.00% Regional WT score at stress:2.00 Regional WM score at stress:0.00 Summed WT score at stress:23.00 Av. Heart Rate72.00bpmSummed WM score at stress:25.00 Study quality was fair. Left Ventricular size was Normal at Rest and Stress. LV Perfusion 1 Perfusion Defect Location: basal inferoseptal Perfusion Defect Size: Medium (3-4 segments) Perfusion Defect Severity: Moderate Type of Perfusion Defect: Partially Reversible LV Perfusion 2 Perfusion Defect Location: mid anterolateral Perfusion Defect Size: Small (1-2 segments) Perfusion Defect Severity: Mild Type of Perfusion Defect: Reversible LV Perf. Quant 17 Seg. SSS24.00 17 Seg. SRS17.00 17 Seg. SDS7.00 Stress Defect Extent (% LAD)28.10Rest Defect Extent (% LAD)28.10Rev. Defect Extent (% LAD)10.00 Stress Defect Extent (% LCX)35.00Rest Defect Extent (% LCX)7.50Rev. Defect Extent (% LCX)27.50 Stress Defect Extent (% RCA)76.70Rest Defect Extent (% RCA)74.40Rev. Defect Extent (% RCA)12.20 Stress Defect Extent (% JUN)47.20Rest Defect Extent (% JUN)38.30Rev. Defect Extent (% JUN)17.40 Other Information Quality:Average Overall Exercise Capacity: Poor IMPRESSION Abnormal Myocardial Perfusion exercise stress study Diseased Vessels: Left Anterior Descending,Right Coronary Global LV Function: Moderately reduced Stress Test Summary: Nondiagnostic LV Perfusion Summary: Abnormal LV Viability Summary: Potentially viable myocardium Conclusion 1. - Abnormal myocardial perfusion study with evidence of partially reverible ischemia in RCA territory and mild ischemia in LAD territory 2. - Moderate LV systolic dysfunction 3. Recommendations: 4. - cardiac catheterization is recommended
[2018-05-02] MEDS ORDERED: Pneumococcal 23-Valent Vaccine IM ONE (10:00)
[2018-05-02] MEDS: Metoprolol Succinate 100 mg XL Tab PO SCH (10:11)
[2018-05-02] MEDS: diltiaZEM 240 mg/24 Hours CD Cap PO SCH (10:11)
[2018-05-02 10:23] LABS: BASO % 0.2 % (0.0-2.0); EOS % 0.2 % (0.0-4.0); HEMOGLOBIN 12.4 g/dL (12.0-18.0); LYMPH # 0.7 K/uL (1.0-4.3); LYMPH % 4.3 % (20.0-40.0); MEAN CELL VOLUME 81.6 fL (80.0-94.0); MEAN CORPUSCULAR HEMOGLOBIN 26.3 pg (27.0-31.0); MEAN CORPUSCULAR HGB CONC 32.2 g/dL (33.0-37.0); MONO # 0.3 K/uL (0.0-0.8); NEUT # 15.6 K/uL (1.8-7.0); NEUT % 93.3 % (50.0-75.0); PLATELET COUNT 247 K/uL (130-400); RBC 4.73 Mil/uL (4.40-5.90); RED CELL DISTRIBUTION WIDTH 14.8 % (11.5-14.5)
[2018-05-02 10:24] LABS: WHITE BLOOD COUNT 16.7 K/uL (4.8-10.8)
[2018-05-02] MEDS ORDERED: Iohexol 350mg/ml 100 ML ONE ×2 (10:38→14:59)
[2018-05-02 11:03] LABS: LYMPHOCYTE 4 % (20-40); MONOCYTE 3 % (0-10); NEUTROPHIL 93 % (50-75); PLATELET ESTIMATE NORMAL (NORMAL); TOTAL CELLS COUNTED 100
[2018-05-02 11:05] LABS: ALB/GLOB RATIO 1.4 (1.0-2.1); ALBUMIN 4.3 g/dL (3.5-5.0); ALT/SGPT 14 U/L (21-72); AST/SGOT 23 U/L (17-59); BLOOD UREA NITROGEN 24 mg/dL (9-20); CALCIUM 8.7 mg/dl (8.6-10.4); GFR NON-AFRICAN AMERICAN > 60
--- NOTE | 2018-05-02 13:24 | CP.PCM.PN ---
Subjective - Date & Time of Evaluation Date of Evaluation: 05/02/18 Time of Evaluation: 13:20 - Subjective Subjective: PGY3 Note for Dr. Moctezuma; Medicine This patient was previously admitted under Dr. Tania Mckenna; he is a long standing patient of Dr. Moctezuma who will not be taking over care The patient was seen and examined with Dr. Moctezuma in the labor/excavator where he was about to undergo cardiac cath with Dr. Glass (cardiology). This patient is a 57-year-old male with PMhx for CAD status post CABG 13 years ago at [facility], HTN, dyslipidemia, DM presented with the complaint of chest pain and shortness of breath that woke him up from sleeping on admission. He at current has no complaints to offer us; denies any chest pain, shortness of breath, abdominal pain, n/v/d, dysuria/freq/urg or lower extremity pain/swelling. Meds: Losartan 100mg/HCTZ 12.5mg, Cardizem, Synthroid, Januvia, Clipidogrel, omeprazole Lipitor Toprol-XL aspirin, metformin albuterol glimepiride and Flovent. Past Surg Hx: significant for CABG x5 no history of angioplasty and stenting, possible sleep apnea FamHx: Father with CAD/Heart disease Allergies: Denies Social: denies smoking, independent in all IADL and ADL, ambulatory at baseline without cane, states he has unlimited exercise tolerance Objective - Vital Signs/Intake and Output Vital Signs (last 24 hours): Temp Pulse Resp BP Pulse Ox 97.9 F 70 20 150/71 95 05/02/18 08:00 05/02/18 08:28 05/02/18 08:00 05/02/18 08:00 05/02/18 08:00 Intake and Output: 05/02/18 05/02/18 06:59 18:59 Intake Total 320 Output Total 1000 Balance -680 - Medications Medications: Current Medications Albuterol/Ipratropium (Duoneb 3 Mg/0.5 Mg (3 Ml) Ud) 3 ml INH RQ4 [facility] Last Admin: 05/02/18 07:35 Dose: Not Given Aspirin (Aspirin) 325 mg PO DAILY [facility] Last Admin: 05/01/18 10:57 Dose: 325 mg Budesonide (Pulmicort Respules) 0.25 mg INH RQ12 [facility] Last Admin: 05/02/18 07:35 Dose: Not Given Clopidogrel Bisulfate (Plavix) 75 mg PO DAILY [facility] Last Admin: 05/01/18 10:57 Dose: 75 mg Diltiazem HCl (Cardizem Cd) 240 mg PO DAILY [facility] Last Admin: 05/02/18 10:11 Dose: 240 mg Famotidine (Pepcid) 20 mg PO DAILY [facility] Last Admin: 05/01/18 10:57 Dose: 20 mg Furosemide (Lasix) 40 mg IVP DAILY [facility] Last Admin: 05/01/18 10:56 Dose: 40 mg Glimepiride (Amaryl) 2 mg PO DAILY [facility] Last Admin: 05/01/18 10:57 Dose: 2 mg Heparin Sodium (Porcine) (Heparin) 5,000 units SC Q12 [facility] Last Admin: 05/01/18 21:32 Dose: 5,000 units Hydrochlorothiazide (Hydrodiuril) 25 mg PO DAILY [facility] Last Admin: 05/02/18 10:11 Dose: 25 mg Insulin Aspart (Novolog) 0 unit SC ACHS [facility]; Protocol Last Admin: 05/01/18 21:31 Dose: Not Given Levothyroxine Sodium (Synthroid) 100 mcg PO DAILY@0630 [facility] Last Admin: 05/02/18 06:06 Dose: 100 mcg Losartan Potassium (Cozaar) 50 mg PO DAILY [facility] Last Admin: 05/02/18 10:11 Dose: 50 mg Metformin HCl (Glucophage) 1,000 mg PO BIDCC [facility] Last Admin: 05/02/18 09:01 Dose: Not Given Methylprednisolone (Solu-Medrol) 40 mg IVP Q8 [facility] Last Admin: 05/02/18 06:06 Dose: 40 mg Metoprolol Succinate (Toprol Xl) 100 mg PO DAILY [facility] Last Admin: 05/02/18 10:11 Dose: 100 mg Sitagliptin Phosphate (Januvia) 100 mg PO DAILY [facility] Last Admin: 05/01/18 10:57 Dose: 100 mg - Labs Labs: 05/02/18 10:19 05/02/18 10:19 PT 13.8 SECONDS (9.7-12.2) H 04/30/18 02:21 INR 1.3 04/30/18 02:21 APTT 28 SECONDS (21-34) 12/26/18 02:21 - Constitutional Appears: Non-toxic (morbidly obese) - Head Exam Head Exam: ATRAUMATIC, NORMAL INSPECTION - Eye Exam Eye Exam: EOMI - ENT Exam ENT Exam: Mucous Membranes Moist - Neck Exam Neck Exam: Full ROM. absent: Lymphadenopathy - Respiratory Exam Respiratory Exam: absent: Clear to Ausculation Bilateral, Rales, Rhonchi, W heezes (crackles bases) - Cardiovascular Exam Cardiovascular Exam: REGULAR RHYTHM, +S1, +S2 - GI/Abdominal Exam GI & Abdominal Exam: Soft, Normal Bowel Sounds (obese ) - Extremities Exam Extremities Exam: Full ROM. absent: Calf Tenderness - Back Exam Back Exam: NORMAL INSPECTION. absent: CVA tenderness (L), CVA tenderness (R) - Neurological Exam Neurological Exam: Alert, Awake - Psychiatric Exam Psychiatric exam: Normal Affect - Skin Skin Exam: Warm Assessment and Plan - Assessment and Plan (Free Text) Assessment: 57yo [place] M admitted for Acute on Chronic Diastolic CHF w/ preserved EF, and acute now resolved respiratory failure Acute on Chronic CHF; preserved EF 45% -grade III diastolic dysfunction echo on this admission; moderate Pulm HTN as well -trop .0230 on admission not followed up; patient no longer has chest pain -MUGA showed abnormalities with reversibility in RCA and LAD territories recommending cath -Cath done 05/02; pending results; Dr. Glass (Cardiology) thank you for your help -f/u results from cath -patient had previous CABG 13 years ago -continue with other current medical management; B cami, aspirin, plavix, GUALBERTO/ARB, statin -Xray showed no active disease or change -patient was initially fluid overloaded on admission which most likely caused SOB; blood pressure now controlled as are symptoms Acute Respiratory Failure; resolved -most liekly 2/2 to CHF exacerbation with fluid overload; patient was admitted on BiPap and diuresed which improved symptoms -pulm recommending outpatient PFT testing -will taper steroids on?? patient has no wheezing on exam -c/w budesonide while inpatient however patient was only using albuterol HFA PRN (less than twice a month) HTN; chronic -increase cozaar to 100mg daily from 50mg -Hctz 25mg daily -PO lasix 40mg -Diltiazem 240 daily -Metoprolol 100mg XR daily DM; chronic -will hold metformin while inpatient and because patient had cath as it can be nephrotoxic -ISS as needed high dose -c/w januvia and amaryl Dyslipidemia; chronic -Crestor 40mg HS; needs high dose statin Leukocytosis -most likely from steroid use -will monitor -taper steroids Hypothyroidism -c/w levothryroxine Obesity -patient counseled on diet and weight loss adherence Proph -GI prophylaxis not indicated -Hep SC Case discussed and seen with Dr. Jose Elias Florez PGY3
[2018-05-02] MEDS ORDERED: Midazolam 2 MG/2 ML VIAL ONE ×2 (14:09→14:48)
[2018-05-02] MEDS ORDERED: Verapamil 0 ML ONE (14:35)
--- NOTE | 2018-05-02 21:17 | CP.PCM.PN ---
Subjective - Date & Time of Evaluation Date of Evaluation: 05/02/18 Time of Evaluation: 08:00 - Subjective Subjective: clinically same Objective - Vital Signs/Intake and Output Vital Signs (last 24 hours): Temp Pulse Resp BP Pulse Ox 97.3 F L 57 L 20 148/74 95 05/02/18 17:00 05/02/18 17:00 05/02/18 17:00 05/02/18 17:00 05/02/18 17:00 Intake and Output: 05/02/18 05/03/18 18:59 06:59 Output Total 600 Balance -600 - Medications Medications: Current Medications Albuterol/Ipratropium (Duoneb 3 Mg/0.5 Mg (3 Ml) Ud) 3 ml INH RQ4 [facility] Last Admin: 05/02/18 19:09 Dose: Not Given Aspirin (Aspirin) 325 mg PO DAILY [facility] Last Admin: 05/02/18 16:00 Dose: Not Given Budesonide (Pulmicort Respules) 0.25 mg INH RQ12 [facility] Last Admin: 05/02/18 19:10 Dose: Not Given Clopidogrel Bisulfate (Plavix) 75 mg PO DAILY [facility] Last Admin: 05/02/18 16:01 Dose: Not Given Diltiazem HCl (Cardizem Cd) 240 mg PO DAILY [facility] Last Admin: 05/02/18 10:11 Dose: 240 mg Famotidine (Pepcid) 20 mg PO DAILY [facility] Last Admin: 05/02/18 16:00 Dose: Not Given Furosemide (Lasix) 40 mg PO DAILY [facility] Glimepiride (Amaryl) 2 mg PO DAILY [facility] Last Admin: 05/02/18 16:00 Dose: Not Given Heparin Sodium (Porcine) (Heparin) 5,000 units SC Q12 [facility] Last Admin: 05/02/18 10:30 Dose: Not Given Hydrochlorothiazide (Hydrodiuril) 25 mg PO DAILY [facility] Last Admin: 05/02/18 10:11 Dose: 25 mg Insulin Aspart (Novolog) 0 unit SC ACHS [facility]; Protocol Last Admin: 05/02/18 17:51 Dose: 6 unit Levothyroxine Sodium (Synthroid) 100 mcg PO DAILY@0630 [facility] Last Admin: 05/02/18 06:06 Dose: 100 mcg Losartan Potassium (Cozaar) 100 mg PO DAILY [facility] Metformin HCl (Glucophage) 1,000 mg PO BIDCC [facility] Last Admin: 05/02/18 09:01 Dose: Not Given Methylprednisolone (Solu-Medrol) 40 mg IVP DAILY [facility]; Taper Stop: 05/05/18 09:59 Metoprolol Succinate (Toprol Xl) 100 mg PO DAILY [facility] Last Admin: 05/02/18 10:11 Dose: 100 mg Pneumococcal Polyvalent Vaccine (Pneumovax 23 Vaccine) 0.5 ml IM .ONCE ONE Stop: 05/03/18 10:01 Rosuvastatin Calcium (Crestor) 40 mg PO [facility] Sitagliptin Phosphate (Januvia) 100 mg PO DAILY [facility] Last Admin: 05/02/18 16:00 Dose: Not Given - Labs Labs: 05/02/18 10:19 05/02/18 10:19 PT 13.8 SECONDS (9.7-12.2) H 04/30/18 02:21 INR 1.3 04/30/18 02:21 APTT 28 SECONDS (21-34) 04/30/18 02:21
--- NOTE | 2018-05-02 23:52 | CARDCATH ---
PROCEDURE DATE: 05/02/2018 INDICATIONS: Mr. Olivier is a 57-year-old male, who presented with acute CHF exacerbation, history of CAD, CABG. The patient underwent a nuclear stress test for ischemia in the inferior septal and the anterior lateral yancey with compromised ejection fraction. EF on nuclear stress test was noted to be about 36%. PROCEDURES PERFORMED: Left heart catheterization with selective left and right coronary angiogram, left ventriculogram, selective left internal mammary artery to left anterior descending, selective graft to obtuse marginal angiogram, 6-Bel[place]ian right femoral anterior access, Mynx closure device for hemostasis. ANGIOGRAPHIC FINDINGS: [place] coronary left main is a large-sized vessel and bifurcates into LAD and circumflex, LAD has proximal 100% occlusion, RCA has proximal 100% occlusion with some collateral flow from distal feeding the RCA, bypass graft NICOLE to LAD. NICOLE has a jump graft feeding the LAD and obtuse marginal 2, which is widely patent. SVG graft feeds the diagonal branch which has a retrograde filling into the LAD, widely patent, SVG to RCA occluded. IMPRESSION: Three patent grafts given [place] triple-vessel disease, ischemic cardiomyopathy, ejection fraction of 30% to 35%. RECOMMENDATIONS: The patient can be discharged home in 24 to 48 hours. EDP was high around 38 to 40, will need aggressive diuresis for improvement with heart failure. Guideline-directed therapy for ischemic cardiomyopathy. The patient will need further evaluation for possible BiV ICD. Yuri Glass MD
[2018-05-03] MEDS: Albuterol-Ipratrop 3 mg / 0.5 (3 ml) UD INH SCH ×6 (00:05→19:12)
[2018-05-03] MEDS ORDERED: (Novolin R) Insulin Human Regular 100 units/ml vial IVP ONE (02:22)
[2018-05-03] MEDS: Levothyroxine 100 MCG TAB PO SCH (06:14)
[2018-05-03] MEDS: Budesonide 0.25 mg/2 ml Inhal Susp UD INH SCH ×2 (07:45→19:13)
[2018-05-03] MEDS: (Novolog) Insulin Aspart, Recombinant 100 u/ml 10 ml vial SC SCH ×4 (08:22→23:47)
[2018-05-03] MEDS: diltiaZEM 240 mg/24 Hours CD Cap PO SCH (09:37)
[2018-05-03] MEDS: Metoprolol Succinate 100 mg XL Tab PO SCH (09:38)
[2018-05-03] MEDS: MethylPREDNISolone 40 mg Vial IVP SCH (09:38)
[2018-05-03] MEDS ORDERED: Pneumococcal 23-Valent Vaccine IM ONE (10:00)
[2018-05-03] MEDS ORDERED: (Lantus) Insulin Glargine, Recombinant SC ONE (23:17)
[2018-05-04] MEDS: Albuterol-Ipratrop 3 mg / 0.5 (3 ml) UD INH SCH ×7 (03:26→23:44)
[2018-05-04] MEDS: Levothyroxine 100 MCG TAB PO SCH (06:08)
[2018-05-04] MEDS: Budesonide 0.25 mg/2 ml Inhal Susp UD INH SCH ×2 (07:20→19:29)
[2018-05-04] MEDS: (Novolog) Insulin Aspart, Recombinant 100 u/ml 10 ml vial SC SCH ×4 (08:47→21:25)
[2018-05-04] MEDS: diltiaZEM 240 mg/24 Hours CD Cap PO SCH (09:19)
[2018-05-04] MEDS: MethylPREDNISolone 40 mg Vial IVP SCH (09:20)
[2018-05-04] MEDS: Metoprolol Succinate 100 mg XL Tab PO SCH (09:20)
[2018-05-04] MEDS: (Lantus) Insulin Glargine, Recombinant SC SCH (09:20)
[2018-05-05] MEDS: Albuterol-Ipratrop 3 mg / 0.5 (3 ml) UD INH SCH (03:14)
[2018-05-05] MEDS: Levothyroxine 100 MCG TAB PO SCH (05:55)
--- NOTE | 2018-05-05 07:35 | CP.PCM.PN ---
Subjective - Date & Time of Evaluation Date of Evaluation: 05/05/18 Time of Evaluation: 07:35 - Subjective Subjective: Progress note for Dr. Moctezuma Patient was seen and examined at bedside in no acute distress. Patient has no complaints and states he feels well. He has not felt short of breath since the day of admission. He currently denies having chest pain, palpitations, dyspnea, cough, nausea, vomiting, dizziness, fevers, headaches, abdominal pain, dysuria, constipation, and diarrhea. Objective - Vital Signs/Intake and Output Vital Signs (last 24 hours): Temp Pulse Resp BP Pulse Ox 97.6 F 58 L 20 174/78 H 97 05/04/18 23:25 05/04/18 23:25 05/04/18 23:25 05/04/18 23:25 05/04/18 23:25 - Medications Medications: Current Medications Albuterol/Ipratropium (Duoneb 3 Mg/0.5 Mg (3 Ml) Ud) 3 ml INH RQ4 [facility] Last Admin: 05/05/18 03:14 Dose: Not Given Aspirin (Aspirin) 325 mg PO DAILY [facility] Last Admin: 05/04/18 09:19 Dose: 325 mg Budesonide (Pulmicort Respules) 0.25 mg INH RQ12 [facility] Last Admin: 05/04/18 19:29 Dose: Not Given Clopidogrel Bisulfate (Plavix) 75 mg PO DAILY [facility] Last Admin: 05/04/18 09:19 Dose: 75 mg Diltiazem HCl (Cardizem Cd) 240 mg PO DAILY [facility] Last Admin: 05/04/18 09:19 Dose: 240 mg Famotidine (Pepcid) 20 mg PO DAILY [facility] Last Admin: 05/04/18 09:19 Dose: 20 mg Furosemide (Lasix) 40 mg PO DAILY [facility] Last Admin: 05/04/18 09:21 Dose: 40 mg Glimepiride (Amaryl) 2 mg PO DAILY [facility] Last Admin: 05/04/18 09:19 Dose: 2 mg Hydrochlorothiazide (Hydrodiuril) 25 mg PO DAILY [facility] Last Admin: 05/04/18 09:19 Dose: 25 mg Insulin Aspart (Novolog) 0 unit SC [facility]; Protocol Last Admin: 05/04/18 21:25 Dose: 3 units Insulin Glargine (Lantus) 20 unit SC DAILY [facility] Last Admin: 05/04/18 09:20 Dose: 20 units Levothyroxine Sodium (Synthroid) 100 mcg PO DAILY@0630 [facility] Last Admin: 05/05/18 05:55 Dose: 100 mcg Losartan Potassium (Cozaar) 100 mg PO DAILY [facility] Last Admin: 05/04/18 09:20 Dose: 100 mg Metformin HCl (Glucophage) 1,000 mg PO BIDCC [facility] Last Admin: 05/04/18 17:08 Dose: 1,000 mg Methylprednisolone (Solu-Medrol) 20 mg IVP DAILY [facility]; Taper Stop: 05/05/18 09:59 Last Admin: 05/04/18 09:20 Dose: 20 mg Metoprolol Succinate (Toprol Xl) 100 mg PO DAILY [facility] Last Admin: 05/04/18 09:20 Dose: 100 mg Rosuvastatin Calcium (Crestor) 40 mg PO HS [facility] Last Admin: 05/04/18 21:25 Dose: 40 mg Sitagliptin Phosphate (Januvia) 100 mg PO DAILY [facility] Last Admin: 05/04/18 09:19 Dose: 100 mg - Labs Labs: 05/02/18 10:19 05/02/18 10:19 PT 13.8 SECONDS (9.7-12.2) H 04/30/18 02:21 INR 1.3 04/30/18 02:21 APTT 28 SECONDS (21-34) 04/30/18 02:21 - Constitutional Appears: No Acute Distress - Head Exam Head Exam: ATRAUMATIC, NORMAL INSPECTION - Eye Exam Eye Exam: EOMI, Normal appearance - ENT Exam ENT Exam: Mucous Membranes Moist - Respiratory Exam Respiratory Exam: Clear to Ausculation Bilateral, NORMAL BREATHING PATTERN. absent: Rales, Rhonchi, Wheezes, Respiratory Distress - Cardiovascular Exam Cardiovascular Exam: REGULAR RHYTHM, +S1, +S2 Additional comments: Well healed scar mid sternum - GI/Abdominal Exam GI & Abdominal Exam: Soft, Normal Bowel Sounds. absent: Distended, Firm, Guarding, Tenderness - Extremities Exam Extremities Exam: Normal Inspection. absent: Calf Tenderness, Pedal Edema, Tenderness - Neurological Exam Neurological Exam: Alert, Awake, Oriented x3 - Psychiatric Exam Psychiatric exam: Normal Affect, Normal Mood - Skin Skin Exam: Dry, Intact, Normal Color, Warm Assessment and Plan - Assessment and Plan (Free Text) Plan: 57-year-old male with PMhx for CAD, s/p CABG 13 years ago at [facility], HTN, dyslipidemia, DM, who presented with the complaint of chest pain and shortness of breath. Patient is s/p cardiac cath (05/02/18) with Dr. Glass. Acute on Chronic CHF; EF 30-35% - Echo (04/30/18): Grade III diastolic dysfunction; moderate Pulm HTN - Trop .0230 on admission not followed up; patient no longer has chest pain - MUGA showed abnormalities with reversibility in RCA and LAD territories recommending cath - Cath done on 05/[address] Glass (tool worker): results showed three patent grafts given triple vessel disease, ischemic cardiomyopathy, EF 30-35%. - Patient may need additional evaluation for BiV ICD. - Continue with current medical management: B cami, aspirin, plavix, GUALBERTO/ARB, statin - Xray showed no active disease or change - Patient was initially fluid overloaded on admission which most likely caused SOB; blood pressure now controlled as are symptoms Acute Respiratory Failure; resolved - Most likely 2/2 to CHF exacerbation with fluid overload; patient was admitted on BiPap and diuresed- symptoms have improved - Pulm recommending outpatient PFT testing - Will taper steroids: Solumedrol 20mg IV started on 05/03/18, last dose to be given on 05/05/18. - Continue Budesonide Q12h while inpatient however patient was only using albuterol HFA PRN (less than twice a month) HTN; chronic - Cozaar to 100mg daily (increased from 50mg) - Hctz 25mg PO daily - Lasix 40mg PO daily - Diltiazem 240mg PO daily - Metoprolol 100mg XR PO daily DM; chronic - Hold metformin while inpatient and because patient had cath as it can be nephrotoxic - ISS as needed, high dose - Continue Januvia and Amaryl Dyslipidemia; chronic - Crestor 40mg HS; needs high dose statin Leukocytosis - most likely from steroid use - will monitor - taper steroids, last dose to be given on 05/05/18 Hypothyroidism - Continue Levothyroxine Obesity - Patient counseled on diet and weight loss adherence Proph - GI prophylaxis not indicated Patient is stable for discharge to home per Dr. Moctezuma. Patient must follow up with PMD, Dr. Moctezuma, and Child Welfare Counselor, Dr. Glass, within one week of discharge. Patient must resume home medications and continue the following new medications: Lasix 40mg PO daily and Losartan 100mg PO daily (increased from 50mg PO daily). If symptoms worsen or reoccur, patient should return to the nearest ER. Case discussed with Dr. Moctezuma . All medical management per Dr. Moctezuma. Betsy Grey, PGY2
[2018-05-05 08:18] VITALS: PULSE 56; TEMP 98.1; O2SAT 95
[2018-05-05] MEDS: (Novolog) Insulin Aspart, Recombinant 100 u/ml 10 ml vial SC SCH ×2 (08:42→11:21)
[2018-05-05] MEDS: diltiaZEM 240 mg/24 Hours CD Cap PO SCH (09:43)
[2018-05-05 09:44] VITALS: BP 150/80
[2018-05-05] MEDS: Metoprolol Succinate 100 mg XL Tab PO SCH (09:44)
[2018-05-05] MEDS: (Lantus) Insulin Glargine, Recombinant SC SCH (10:34)
[2018-05-05 10:59] LABS: BASO % 0.3 % (0.0-2.0); EOS # 0.1 K/uL (0.0-0.7); LYMPH # 2.8 K/uL (1.0-4.3); LYMPH % 21.3 % (20.0-40.0); MEAN CELL VOLUME 81.6 fL (80.0-94.0); MEAN PLATELET VOLUME 10.2 fL (7.2-11.7); MONO # 0.9 K/uL (0.0-0.8); MONO % 7.1 % (0.0-10.0); NEUT # 9.3 K/uL (1.8-7.0); NEUT % 70.3 % (50.0-75.0); RBC 5.46 Mil/uL (4.40-5.90); RED CELL DISTRIBUTION WIDTH 14.8 % (11.5-14.5); WHITE BLOOD COUNT 13.3 K/uL (4.8-10.8)
[2018-05-05 11:11] LABS: HEMOGLOBIN 14.7 g/dL (12.0-18.0)
[2018-05-05 11:19] LABS: ALB/GLOB RATIO 1.3 (1.0-2.1); ALBUMIN 3.8 g/dL (3.5-5.0); ALT/SGPT 29 U/L (21-72); AST/SGOT 25 U/L (17-59); BLOOD UREA NITROGEN 27 mg/dL (9-20); CALCIUM 8.9 mg/dl (8.6-10.4); GFR NON-AFRICAN AMERICAN > 60
[2018-05-05] MEDS ORDERED: Potassium Chloride 20 mEq ER Tab PO ONE (11:46)
== END 2018-05-05 13:23 | disposition home or self-care (01) | DRG 286 ==
LOC: C.ER 01:51 → C.9E 03:19 → C.5S 07:18
PROVIDERS: ADMIT Internal Medicine Nephrology; ATTEND Internal Medicine Pulmonary Disease
PROC: 5A09357 Assistance with Respiratory Ventilation, Less than 24 Consecutive Hours, Continuous Positive Airway Pressure (ICD-10-PCS; 2018-04-30)
PROC: 4A023N7 Measurement of Cardiac Sampling and Pressure, Left Heart, Percutaneous Approach (ICD-10-PCS; principal; 2018-05-02)
PROC: B2151ZZ Fluoroscopy of Left Heart using Low Osmolar Contrast (ICD-10-PCS; 2018-05-02)
PROC: B2131ZZ Fluoroscopy of Multiple Coronary Artery Bypass Grafts using Low Osmolar Contrast (ICD-10-PCS; 2018-05-02)
PROC: B2111ZZ Fluoroscopy of Multiple Coronary Arteries using Low Osmolar Contrast (ICD-10-PCS; 2018-05-02)
DX: I11.0 Hypertensive heart disease with heart failure (principal); I50.33 Acute on chronic diastolic (congestive) heart failure; J96.00 Acute respiratory failure, unspecified whether with hypoxia or hypercapnia; I25.810 Atherosclerosis of coronary artery bypass graft(s) without angina pectoris; I25.10 Atherosclerotic heart disease of native coronary artery without angina pectoris; I25.82 Chronic total occlusion of coronary artery; E87.2 Acidosis; I25.5 Ischemic cardiomyopathy; I27.20 Pulmonary hypertension, unspecified; J44.9 Chronic obstructive pulmonary disease, unspecified; E11.9 Type 2 diabetes mellitus without complications; D72.829 Elevated white blood cell count, unspecified; G47.30 Sleep apnea, unspecified; E78.5 Hyperlipidemia, unspecified; E03.9 Hypothyroidism, unspecified; E66.9 Obesity, unspecified; Z79.84 Long term (current) use of oral hypoglycemic drugs; Z82.49 Family history of ischemic heart disease and other diseases of the circulatory system

== ENCOUNTER 2018-06-15 03:30 | Inpatient (IN) | payer MEDICARE, MEDICAID ==
[2018-06-15] MEDS ORDERED: Nitroglycerin 50mg in D5W 50 MG/250 ML BOTTLE IV STA (03:33)
--- NOTE | 2018-06-15 03:33 | C.PDOC ---
History Of Present Illness The patient is brought to the ED for evaluation of acute onset of shortness of breath. As per EMS, patient received 20mg Lasix and was placed on BiPAP en route to the ED. Upon arrival, patient is speaking in 1-2 word sentences. Review of prior records shows that patient was evaluated on 04/30/18 for similar complaint. He underwent cardiac cath by Dr. Glass on 05/02/18, which showed ejection fracture of around 33% and three patent grafts given triple vessel disease. Additional history limited secondary to patient's clinical condition. Time Seen by Provider: 06/15/18 03:32 History Per: EMS History/Exam Limitations: other (clinical condition ) Onset/Duration Of Symptoms: Hrs Current Symptoms Are (Timing): Still Present Initiating Event: Other (unknown ) Quality: Dull Exacerbating Factor(s): Exertion Current Respiratory Medications: See Home Med List Severity: Severe Pain Scale Rating Of: 8 Associated Symptoms: denies: Fever, Chills Reports Recently: Seen In ED, Treated By A Physician, Hospitalized Recent travel outside of the [place]: No Additional History Per: EMS Past Medical History Reviewed: Historical Data, Nursing Documentation, Vital Signs - Medical History PMH: HTN Denies: Chronic Kidney Disease Surgical History: CABG - [facility] Procedures ASSISTANCE WITH RESPIRATORY VENTILATION, <24 HRS, CPAP (04/30/18) FLUOROSCOPY OF LEFT HEART USING LOW OSMOLAR CONTRAST (04/30/18) FLUOROSCOPY OF MULT COR A GRAFT USING L OSM CONTRAST (04/30/18) FLUOROSCOPY OF MULT COR ART USING L OSM CONTRAST (04/30/18) MEASURE OF CARDIAC SAMPL & PRESSURE, L HEART, PERC APPROACH (04/30/18) Family History: States: Unknown Family Hx - Social History Hx Alcohol Use: No Hx Substance Use: No Review Of Systems Review Of Systems: ROS cannot be obtained secondary to pt's inabilty to answer questions. Physical Exam - Physical Exam Appears: In Acute Distress Skin: Warm, Dry Head: Normacephalic Eye(s): bilateral: Normal Inspection Oral Mucosa: Moist Neck: Supple Chest: Symmetrical, No Deformity, No Tenderness, Other (cabg) Cardiovascular: Rhythm Regular Respiratory: Decreased Breath Sounds, Rales (bilaterally ), No Rhonchi, Wheezing, Other (speaking in 1-2 word sentences ) Gastrointestinal/Abdominal: Soft, No Tenderness, Distention, No Guarding, No Rebound, Other (tympanic to percussion ) Back: Normal Inspection Extremity: Pedal Edema (bilaterally ), Capillary Refill (less than 2 seconds ) Extremity: Bilateral: Atraumatic, Normal ROM Pulses: Left Dorsalis Pedis: Normal, Right Dorsalis Pedis: Normal Neurological/Psych: Oriented x3 Gait: Unable To Assess ED Course And Treatment - Laboratory Results Result Diagrams: 06/15/18 03:43 06/15/18 03:43 ECG: Interpreted By Me, Viewed By Me ECG Rhythm: Sinus Rhythm (91), ST/T Changes (lat ischic changes, unchanged from 04/30/18) O2 Sat by Pulse Oximetry: 100 (on RA ) Pulse Ox Interpretation: Normal - Radiology CXR: Interpreted by Me, Viewed By Me Progress Note: Bloodwork, urinalysis, CXR, EKG ordered and reviewed. Lasix IVP and Nitroglycerin IV given. Critical Care Time - Critical Care Note Total Time (in mins): 30 Documented critical care: time excludes all time spent performing seperately billable procedures. Disposition Discussed With : Sheri Moctezuma Comment: accepted the pt on his service and took over the care at 4:53 AM Doctor Will See Patient In The: Hospital Counseled Patient/Family Regarding: Studies Performed, Diagnosis - Disposition Disposition: HOSPITALIZED Disposition Time: 03:33 Condition: GUARDED - POA Present On Arrival: Poor Glycemic Control - Clinical Impression Clinical Impression: Acute pulmonary edema, Respiratory distress - Scribe Statement The provider has reviewed the documentation as recorded by the Scribe (Rosana Mckenna) Provider Attestation: All medical record entries made by the Scribe were at my direction and personally dictated by me. I have reviewed the chart and agree that the record accurately reflects my personal performance of the history, physical exam, medi devin decision making, and the department course for this patient. I have also personally directed, reviewed, and agree with the discharge instructions and disposition. Decision To Admit - Pt Status Changed To: Hospital Disposition Of: Inpatient - Admit Certification Admit to Inpatient:: After my assessment, the patient will require hospitalization for at least two midnights. This is because of the severity of symptoms shown, intensity of services needed, and/or the medical risk in this patient being treated as an outpatient. - InPatient: Physician Admission Certification: I certify that this patient requires 2 or more midnights of care for the following reason:: After my assessment, the patient will require hospitalization for at least two midnights. This is because of the severity of symptoms shown, intensity of services needed, and/or the medical risk in this patient being treated as an outpatient. - . Bed Request Type: Telemetry Admitting Physician: Sheri Moctezuma Patient Diagnosis: Acute pulmonary edema, Respiratory distress
[2018-06-15 03:36] VITALS: BMI 29.9
[2018-06-15 03:48] LABS: BASO # 0.1 K/uL (0.0-0.2); BASO % 0.8 % (0.0-2.0); HEMOGLOBIN 12.4 g/dL (12.0-18.0); LYMPH # 2.8 K/uL (1.0-4.3); LYMPH % 15.2 % (20.0-40.0); MEAN CELL VOLUME 82.1 fL (80.0-94.0); MEAN CORPUSCULAR HEMOGLOBIN 26.8 pg (27.0-31.0); MEAN CORPUSCULAR HGB CONC 32.7 g/dL (33.0-37.0); MEAN PLATELET VOLUME 10.3 fL (7.2-11.7); MONO % 5.2 % (0.0-10.0); NEUT # 14.7 K/uL (1.8-7.0); NEUT % 78.8 % (50.0-75.0); RBC 4.62 Mil/uL (4.40-5.90); RED CELL DISTRIBUTION WIDTH 15.4 % (11.5-14.5); WHITE BLOOD COUNT 18.6 K/uL (4.8-10.8)
[2018-06-15 03:50] LABS: ABG ALLEN TEST POS; ARTERIAL BLOOD GAS HCO3 25.3 mmol/L (21-28); ARTERIAL BLOOD GAS O2 SAT 99.6 % (95-98); ARTERIAL BLOOD GAS PCO2 55 mm/Hg (35-45); ARTERIAL BLOOD GAS PH 7.31 (7.35-7.45); ARTERIAL BLOOD GAS PO2 514 mm/Hg (80-100); ARTERIAL BLOOD GAS TCO2 29.4 mmol/L (22-28)
[2018-06-15 03:58] LABS: INR 1.3; PROTHROMBIN TIME 13.9 SECONDS (9.7-12.2)
[2018-06-15] MEDS ORDERED: Magnesium Sulfate 1 gm in D5W 1 GM/100 ML BAG IVPB SCH (04:00)
[2018-06-15 04:02] LABS: ALB/GLOB RATIO 1.4 (1.0-2.1); ALBUMIN 4.4 g/dL (3.5-5.0); ALT/SGPT 17 U/L (21-72); AST/SGOT 27 U/L (17-59); BLOOD UREA NITROGEN 25 mg/dL (9-20); CALCIUM 8.9 mg/dl (8.6-10.4); GFR NON-AFRICAN AMERICAN > 60
[2018-06-15 04:12] LABS: SQUAMOUS EPITHIAL < 1 /hpf (0-5); URINE BILIRUBIN NEGATIVE (NEGATIVE); URINE BLOOD NEGATIVE (NEGATIVE); URINE CLARITY Clear (Clear); URINE COLOR Colorless (YELLOW); URINE GLUCOSE (UA) 1+ mg/dL (Normal); URINE LEUKOCYTE ESTERASE NEG Leu/uL (Negative); URINE PROTEIN 1+ mg/dL (NEGATIVE); URINE UROBILINOGEN NORMAL mg/dL (0.2-1.0)
[2018-06-15 04:12] LABS: B-TYPE NATRIURETIC PEPTIDE 2030 pg/mL (0-900)
[2018-06-15] MEDS: Levothyroxine 100 MCG TAB PO SCH (07:51)
[2018-06-15] MEDS ORDERED: Albuterol HFA 90 mcg/actuation (8 g) INH PRN (08:00)
[2018-06-15] MEDS ORDERED: Albuterol HFA 90 mcg/actuation (8 g) IH SCH (08:00)
[2018-06-15] MEDS: Albuterol-Ipratrop 3 mg / 0.5 (3 ml) UD INH SCH ×4 (08:05→19:58)
--- NOTE | 2018-06-15 09:48 | RAD ---
Date of service: 06/15/2018 HISTORY: SOB COMPARISON: Portable chest 04/30/2018. FINDINGS: LUNGS: No active pulmonary disease. PLEURA: No significant pleural effusion identified, no pneumothorax apparent. CARDIOVASCULAR: Calcific atherosclerotic changes are seen related to the thoracic aorta. Post CABG changes reiterated. Stable cardiomegaly. No pulmonary vascular congestion. OSSEOUS STRUCTURES: No significant abnormalities. VISUALIZED UPPER ABDOMEN: Normal. OTHER FINDINGS: None. IMPRESSION: Stable cardiomegaly. No pulmonary vascular congestion, infiltrate, pleural effusion or pneumothorax evident.
[2018-06-15] MEDS ORDERED: Ammonium Lactate 12% Lotion (225 g) TOP SCH (10:00)
[2018-06-15] MEDS: diltiaZEM 240 mg/24 Hours CD Cap PO SCH (10:08)
[2018-06-15] MEDS: Metoprolol Succinate 100 mg XL Tab PO SCH ×2 (10:08→17:18)
[2018-06-15] MEDS: Hydrocortisone 2.5% Rectal Cream(30 gm) TOP SCH ×2 (10:09→21:25)
[2018-06-15] MEDS: (Novolin R) Insulin Human Regular 100 units/ml vial SC SCH ×3 (12:43→21:05)
[2018-06-15] MEDS: Heparin25000 units/250ml 1/2NS 25,000 UNITS/250 ML BAG IV PRN (14:18)
[2018-06-15 16:08] VITALS: RESP 20
[2018-06-15 17:28] LABS: CK-MB 1.42 ng/mL (0.0-3.38); TROPONIN I 0.208 ng/mL (0.00-0.120)
[2018-06-16] MEDS: Albuterol-Ipratrop 3 mg / 0.5 (3 ml) UD INH SCH ×6 (00:20→19:45)
[2018-06-16] MEDS: Levothyroxine 100 MCG TAB PO SCH (05:34)
[2018-06-16 07:58] LABS: BASO # 0.1 K/uL (0.0-0.2); BASO % 0.7 % (0.0-2.0); EOS # 0.2 K/uL (0.0-0.7); EOS % 1.4 % (0.0-4.0); HEMOGLOBIN 13.7 g/dL (12.0-18.0); LYMPH # 3.4 K/uL (1.0-4.3); LYMPH % 31.2 % (20.0-40.0); MEAN CELL VOLUME 81.1 fL (80.0-94.0); MEAN CORPUSCULAR HGB CONC 33.3 g/dL (33.0-37.0); MEAN PLATELET VOLUME 10.2 fL (7.2-11.7); MONO # 0.9 K/uL (0.0-0.8); MONO % 8.4 % (0.0-10.0); NEUT # 6.4 K/uL (1.8-7.0); NEUT % 58.3 % (50.0-75.0); NRBC % 0.1 % (0.0-2.0); RBC 5.08 Mil/uL (4.40-5.90); RED CELL DISTRIBUTION WIDTH 15.6 % (11.5-14.5); WHITE BLOOD COUNT 10.9 K/uL (4.8-10.8)
[2018-06-16] MEDS: (Novolin R) Insulin Human Regular 100 units/ml vial SC SCH ×4 (08:07→22:26)
[2018-06-16 08:23] LABS: ALB/GLOB RATIO 1.4 (1.0-2.1); ALBUMIN 3.9 g/dL (3.5-5.0); ALT/SGPT 20 U/L (21-72); AST/SGOT 30 U/L (17-59); BLOOD UREA NITROGEN 24 mg/dL (9-20); CALCIUM 8.8 mg/dl (8.6-10.4); GFR NON-AFRICAN AMERICAN > 60
--- NOTE | 2018-06-16 09:01 | CP.PCM.CON ---
History of Present Illness - History of Present Illness History of Present Illness: Consultation for evaluation of CHF exacerbation HPI: Review of Systems - Review of Systems Systems not reviewed;Unavailable: Acuity of Condition - Constitutional Constitutional: As Per HPI - EENT Eyes: As Per HPI Ears: As Per HPI Nose/Mouth/Throat: As Per HPI - Cardiovascular Cardiovascular: As Per HPI - Respiratory Respiratory: As Per HPI - Gastrointestinal Gastrointestinal: As Per HPI - Genitourinary Genitourinary: As Per HPI - Reproductive: Male Reproductive:Male: As Per HPI - Musculoskeletal Musculoskeletal: As Per HPI - Integumentary Integumentary: As Per HPI - Neurological Neurological: As Per HPI - Psychiatric Psychiatric: As Per HPI - Endocrine Endocrine: As Per HPI - Hematologic/Lymphatic Hematologic: As Per HPI Past Patient History - Past Medical History & Family History Past Medical History?: Yes - Past Social History Smoking Status: Former Smoker - CARDIAC Hx Hypertension: Yes - PULMONARY Hx Respiratory Disorders: No - NEUROLOGICAL Hx Neurological Disorder: No - HEENT Hx HEENT Problems: No - RENAL Hx Chronic Kidney Disease: No - ENDOCRINE/METABOLIC Hx Endocrine Disorders: Yes Hx Diabetes Mellitus Type 2: Yes - HEMATOLOGICAL/ONCOLOGICAL Hx Blood Disorders: No - INTEGUMENTARY Hx Dermatological Problems: No - MUSCULOSKELETAL/RHEUMATOLOGICAL Hx Musculoskeletal Disorders: No Hx Falls: No - GASTROINTESTINAL Hx Gastrointestinal Disorders: No - GENITOURINARY/GYNECOLOGICAL Hx Genitourinary Disorders: No - PSYCHIATRIC Hx Substance Use: No - SURGICAL HISTORY Hx Coronary Artery Bypass Graft: Yes - ANESTHESIA Hx Anesthesia: Yes Hx Anesthesia Reactions: No Hx Malignant Hyperthermia: No Meds Allergies/Adverse Reactions: Allergies Allergy/AdvReac Type Severity Reaction Status Date / Time No Known Allergies Allergy Verified 06/15/18 03:39 - Medications Medications: Current Medications Albuterol (Ventolin Hfa 90 Mcg/Actuation (8 G)) 1 puff INH RQ4 PRN PRN Reason: Shortness of Breath Albuterol/Ipratropium (Duoneb 3 Mg/0.5 Mg (3 Ml) Ud) 3 ml INH RQ4 [facility] Last Admin: 06/16/18 04:30 Dose: Not Given Aspirin (Aspirin) 325 mg PO DAILY [facility] Last Admin: 06/15/18 10:08 Dose: 325 mg Clopidogrel Bisulfate (Plavix) 75 mg PO DAILY [facility] Last Admin: 06/15/18 10:08 Dose: 75 mg Diltiazem HCl (Cardizem Cd) 240 mg PO DAILY [facility] Last Admin: 06/15/18 10:08 Dose: 240 mg Famotidine (Pepcid) 20 mg PO DAILY [facility] Fluticasone Propionate (Flonase) 2 spr ALETHA DAILY [facility] Furosemide (Lasix) 40 mg PO BID [facility] Last Admin: 06/15/18 17:53 Dose: 40 mg Glimepiride (Amaryl) 2 mg PO ACB [facility] Last Admin: 06/15/18 07:51 Dose: 2 mg Hydrochlorothiazide (Hydrodiuril) 25 mg PO DAILY [facility] Last Admin: 06/15/18 10:08 Dose: 25 mg Hydrocortisone (Anusol-Hc) 30 gm TOP BID [facility] Last Admin: 06/15/18 21:25 Dose: Not Given Ceftriaxone Sodium 1 gm/ (Sodium Chloride) 100 mls @ 100 mls/hr IVPB Q24H [facility]; Protocol Last Admin: 06/15/18 13:58 Dose: 100 mls/hr Heparin Sodium/Sodium Chloride (Heparin 94345 Units/250ml 1/2 Normal Saline) 25,000 units in 250 mls @ 10.08 mls/hr IV .Q24H PRN; Protocol PRN Reason: PROTOCOL Last Admin: 06/15/18 14:18 Dose: 12 units/kg/hr, 10.08 mls/hr Insulin Human Regular (Novolin R) 0 unit SC ACHS [facility]; Protocol Last Admin: 06/16/18 08:07 Dose: 3 units Lactic Acid (Lac-Hydrin 12% Lotion (225 G)) 0 gm TOP BID [facility] Levothyroxine Sodium (Synthroid) 100 mcg PO DAILY@0630 [facility] Last Admin: 06/16/18 05:34 Dose: 100 mcg Losartan Potassium (Cozaar) 50 mg PO DAILY [facility] Last Admin: 06/15/18 10:08 Dose: 50 mg Metformin HCl (Glucophage) 1,000 mg PO BIDCC [facility] Last Admin: 06/15/18 17:53 Dose: 1,000 mg Metoprolol Succinate (Toprol Xl) 100 mg PO BID [facility] Last Admin: 06/15/18 17:18 Dose: Not Given Rosuvastatin Calcium (Crestor) 40 mg PO HS [facility] Last Admin: 06/15/18 21:26 Dose: 40 mg Sitagliptin Phosphate (Januvia) 100 mg PO DAILY [facility] Last Admin: 06/15/18 10:08 Dose: 100 mg Physical Exam - Constitutional Appears: Well - Head Exam Head Exam: ATRAUMATIC, NORMAL INSPECTION, NORMOCEPHALIC - Eye Exam Eye Exam: EOMI, Normal appearance, PERRL Pupil Exam: NORMAL ACCOMODATION, PERRL - ENT Exam ENT Exam: Mucous Membranes Moist, Normal Exam - Neck Exam Neck exam: Positive for: Normal Inspection - Respiratory Exam Respiratory Exam: Clear to Auscultation Bilateral, Rales, NORMAL BREATHING PATTERN - Cardiovascular Exam Cardiovascular Exam: REGULAR RHYTHM, RRR, +S1, +S2 - GI/Abdominal Exam GI & Abdominal Exam: Normal Bowel Sounds, Soft. absent: Tenderness - Extremities Exam Extremities exam: Positive for: normal inspection - Back Exam Back exam: NORMAL INSPECTION - Neurological Exam Neurological exam: Alert, CN II-XII Intact, Normal Gait, Oriented x3, Reflexes Normal - Psychiatric Exam Psychiatric exam: Normal Affect, Normal Mood - Skin Skin Exam: Dry, Intact, Normal Color, Warm Results - Vital Signs Recent Vital Signs: Last Vital Signs Temp 97.8 F 06/16/18 07:15 Pulse 88 06/16/18 07:15 Resp 20 06/16/18 07:15 BP 142/74 06/16/18 07:15 Pulse Ox 97 06/16/18 07:15 - Labs Result Diagrams: 06/16/18 07:15 06/16/18 07:00 Labs: Laboratory Results - last 24 hr 06/15/18 06/15/18 06/15/18 11:04 11:09 11:33 WBC RBC Hgb Hct MCV MCH MCHC RDW Plt Count MPV Neut % (Auto) Lymph % (Auto) [place] % (Auto) Eos % (Auto) Baso % (Auto) Neut # (Auto) Lymph # (Auto) [place] # (Auto) Eos # (Auto) Baso # (Auto) APTT Sodium Potassium Chloride Carbon Dioxide Anion Gap BUN Creatinine Est GFR ( Amer) Est GFR (Non-Af Amer) POC Glucose (mg/dL) 178 H Random Glucose Lactic Acid 3.2 H Calcium Total Bilirubin AST ALT Alkaline Phosphatase Total Creatine Kinase CK-MB (Mass) Troponin I 0.1300 H* Total Protein Albumin Globulin Albumin/Globulin Ratio 06/15/18 06/15/18 06/15/18 16:50 17:18 19:55 WBC RBC Hgb Hct MCV MCH MCHC RDW Plt Count MPV Neut % (Auto) Lymph % (Auto) [place] % (Auto) Eos % (Auto) Baso % (Auto) Neut # (Auto) Lymph # (Auto) [place] # (Auto) Eos # (Auto) Baso # (Auto) APTT Sodium Potassium Chloride Carbon Dioxide Anion Gap BUN Creatinine Est GFR ( Amer) Est GFR (Non-Af Amer) POC Glucose (mg/dL) 163 H Random Glucose Lactic Acid 1.8 Calcium Total Bilirubin AST ALT Alkaline Phosphatase Total Creatine Kinase 48 L CK-MB (Mass) 1.42 Troponin I 0.2080 H* Total Protein Albumin Globulin Albumin/Globulin Ratio 06/15/18 06/15/18 06/16/18 20:28 20:44 03:36 WBC RBC Hgb Hct MCV MCH MCHC RDW Plt Count MPV Neut % (Auto) Lymph % (Auto) [place] % (Auto) Eos % (Auto) Baso % (Auto) Neut # (Auto) Lymph # (Auto) [place] # (Auto) Eos # (Auto) Baso # (Auto) APTT 82 H D 65 H D Sodium Potassium Chloride Carbon Dioxide Anion Gap BUN Creatinine Est GFR ( Amer) Est GFR (Non-Af Amer) POC Glucose (mg/dL) 189 H Random Glucose Lactic Acid Calcium Total Bilirubin AST ALT Alkaline Phosphatase Total Creatine Kinase CK-MB (Mass) Troponin I Total Protein Albumin Globulin Albumin/Globulin Ratio 06/16/18 06/16/18 06/16/18 06:28 07:00 07:15 WBC 10.9 H RBC 5.08 Hgb 13.7 Hct 41.3 MCV 81.1 MCH 27.0 MCHC 33.3 RDW 15.6 H Plt Count 248 MPV 10.2 Neut % (Auto) 58.3 Lymph % (Auto) 31.2 [place] % (Auto) 8.4 Eos % (Auto) 1.4 Baso % (Auto) 0.7 Neut # (Auto) 6.4 Lymph # (Auto) 3.4 [place] # (Auto) 0.9 H Eos # (Auto) 0.2 Baso # (Auto) 0.1 APTT Sodium 136 Potassium 3.4 L Chloride 90 L Carbon Dioxide 39 H Anion Gap 10 BUN 24 H Creatinine 1.0 Est GFR ( Amer) > 60 Est GFR (Non-Af Amer) > 60 POC Glucose (mg/dL) 206 H Random Glucose 194 H D Lactic Acid Calcium 8.8 Total Bilirubin 0.4 AST 30 ALT 20 L Alkaline Phosphatase 76 Total Creatine Kinase CK-MB (Mass) Troponin I 0.1180 Total Protein 6.7 Albumin 3.9 Globulin 2.8 Albumin/Globulin Ratio 1.4 Assessment & Plan (1) Acute pulmonary edema Status: Acute (2) Respiratory distress Status: Acute (3) CAD (coronary artery disease) Status: Acute (4) COPD (chronic obstructive pulmonary disease) Status: Acute (5) Congestive heart failure Status: Acute (6) Dyslipidemia Status: Acute (7) HTN (hypertension) Status: Acute (8) Hx of CABG Status: Acute
--- NOTE | 2018-06-16 09:13 | HP ---
HISTORY OF PRESENT ILLNESS: The patient was admitted to the hospital with chief complaint of shortness of breath, wheezing, fatigue, and tiredness. The patient was found to have pulmonary edema. The patient came to the ER, advised admission. The patient has history of coronary artery disease, status post CABG, congestive heart failure. PHYSICAL EXAMINATION: GENERAL: The patient is awake, alert, and oriented. Short of breath at rest. VITAL SIGNS: Temperature 98, pulse 90, blood pressure 110/70. HEENT: Within normal limits. NECK: Supple. CHEST: Symmetrical. HEART: Regular. ABDOMEN: Soft. EXTREMITIES: 1+ edema. ASSESSMENT AND PLAN: The patient has congestive heart failure, rule out myocardial infarction. The patient is to get bedrest and supportive care. Sheri Moctezuma MD
[2018-06-16] MEDS: Fluticasone Nasal 50 mcg/Spray NAS SCH ×3 (09:35→11:00)
[2018-06-16] MEDS: diltiaZEM 240 mg/24 Hours CD Cap PO SCH (09:37)
[2018-06-16] MEDS: Hydrocortisone 2.5% Rectal Cream(30 gm) TOP SCH ×2 (09:39→18:32)
[2018-06-16] MEDS: Metoprolol Succinate 100 mg XL Tab PO SCH ×2 (09:40→19:00)
[2018-06-16] MEDS: Ammonium Lactate 12% Lotion (225 g) TOP SCH ×3 (09:40→19:00)
[2018-06-16] MEDS ORDERED: Pantoprazole 40 mg EC Tab PO SCH (10:00)
[2018-06-16] MEDS: Heparin25000 units/250ml 1/2NS 25,000 UNITS/250 ML BAG IV PRN (14:22)
--- NOTE | 2018-06-16 14:28 | CARD ---
APPROVED REPORT Date of service: 06/15/2018 EKG Measurement Heart [id number] <Conclusion> Sinus rhythm with occasional premature ventricular complexes Left atrial enlargement Nonspecific intraventricular block Inferior infarct, age undetermined Cannot rule out Anterior infarct, age undetermined T wave abnormality, consider lateral ischemia Abnormal ECG
--- NOTE | 2018-06-16 16:28 | CP.PCM.PN ---
Subjective - Date & Time of Evaluation Date of Evaluation: 06/16/18 Time of Evaluation: 16:25 - Subjective Subjective: Dr. Moctezuma Service Patient reports feeling short of breath for the past couple of days. Patient states it starting after walking. He tried sitting down to help with his breathing with no improvement in symptoms. Patient has a previous episode in the past being admitted to the hospital for similar symptoms. . As per EMS, patient received 20mg Lasix and was placed on BiPAP en route to the ED. Upon arrival, patient is speaking in 1-2 word sentences. He underwent cardiac cath by Dr. Glass on 05/02/18, which showed ejection fracture of around 33% and three patent grafts given triple vessel disease. Patient admits to being compliant with medications. Patient seen and examined at bedside. Per nursing no acute events occurred overnight. Patient denies any chest pain, shortness of breath, fevers, chills, abdominal pain, dizziness, or any other complaints. ____ Past medical history: cad, chf w/tripple vessel disease, hypertension, diabetes, hyperlipidemia Surgical history: cabg Allergies: Denies Objective - Vital Signs/Intake and Output Vital Signs (last 24 hours): Temp Pulse Resp BP Pulse Ox 97.8 F 56 L 20 142/74 97 06/16/18 07:15 06/16/18 09:00 06/16/18 07:15 06/16/18 09:37 06/16/18 07:15 Intake and Output: 06/16/18 06/16/18 06:59 18:59 Intake Total 480 250 Output Total 850 650 Balance -370 -400 - Medications Medications: Current Medications Albuterol (Ventolin Hfa 90 Mcg/Actuation (8 G)) 1 puff INH RQ4 PRN PRN Reason: Shortness of Breath Albuterol/Ipratropium (Duoneb 3 Mg/0.5 Mg (3 Ml) Ud) 3 ml INH RQ4 [facility] Last Admin: 06/16/18 11:01 Dose: Not Given Aspirin (Aspirin) 325 mg PO DAILY [facility] Last Admin: 06/16/18 09:38 Dose: 325 mg Clopidogrel Bisulfate (Plavix) 75 mg PO DAILY [facility] Last Admin: 06/16/18 09:38 Dose: 75 mg Diltiazem HCl (Cardizem Cd) 240 mg PO DAILY [facility] Last Admin: 06/16/18 09:37 Dose: 240 mg Famotidine (Pepcid) 20 mg PO DAILY [facility] Last Admin: 06/16/18 09:38 Dose: 20 mg Fluticasone Propionate (Flonase) 2 spr ALETHA DAILY [facility] Last Admin: 06/16/18 11:00 Dose: 1 spray Furosemide (Lasix) 40 mg IVP BID [facility] Glimepiride (Amaryl) 2 mg PO ACB [facility] Last Admin: 06/16/18 08:15 Dose: 2 mg Hydrochlorothiazide (Hydrodiuril) 25 mg PO DAILY [facility] Last Admin: 06/16/18 09:38 Dose: 25 mg Hydrocortisone (Anusol-Hc) 30 gm TOP BID [facility] Last Admin: 06/16/18 09:39 Dose: Not Given Ceftriaxone Sodium 1 gm/ (Sodium Chloride) 100 mls @ 100 mls/hr IVPB Q24H [facility]; Protocol Last Admin: 06/16/18 12:15 Dose: 100 mls/hr Heparin Sodium/Sodium Chloride (Heparin 91801 Units/250ml 1/2 Normal Saline) 25,000 units in 250 mls @ 10.08 mls/hr IV .Q24H PRN; Protocol PRN Reason: PROTOCOL Last Admin: 06/16/18 14:22 Dose: 12 units/kg/hr, 10.08 mls/hr Insulin Human Regular (Novolin R) 0 unit SC ACHS [facility]; Protocol Last Admin: 06/16/18 11:22 Dose: 6 units Lactic Acid (Lac-Hydrin 12% Lotion (225 G)) 0 gm TOP BID [facility] Last Admin: 06/16/18 11:00 Dose: 1 applic Levothyroxine Sodium (Synthroid) 100 mcg PO DAILY@0630 [facility] Last Admin: 06/16/18 05:34 Dose: 100 mcg Losartan Potassium (Cozaar) 50 mg PO DAILY [facility] Last Admin: 06/16/18 09:38 Dose: 50 mg Metformin HCl (Glucophage) 1,000 mg PO BIDCC [facility] Last Admin: 06/16/18 08:15 Dose: 1,000 mg Metoprolol Succinate (Toprol Xl) 100 mg PO BID [facility] Last Admin: 06/16/18 09:40 Dose: Not Given Rosuvastatin Calcium (Crestor) 40 mg PO HS [facility] Last Admin: 06/15/18 21:26 Dose: 40 mg Sitagliptin Phosphate (Januvia) 100 mg PO DAILY [facility] Last Admin: 06/16/18 09:38 Dose: 100 mg - Labs Labs: 06/16/18 07:15 06/16/18 07:00 PT 13.9 SECONDS (9.7-12.2) H 06/15/18 03:43 INR 1.3 06/15/18 03:43 APTT 65 SECONDS (21-34) H D 06/16/18 03:36 - Head Exam Head Exam: ATRAUMATIC, NORMAL INSPECTION - Eye Exam Eye Exam: EOMI, Normal appearance, PERRL Pupil Exam: NORMAL ACCOMODATION - ENT Exam ENT Exam: Mucous Membranes Moist, Normal Oropharynx - Neck Exam Neck Exam: Normal Inspection - Respiratory Exam Respiratory Exam: Clear to Ausculation Bilateral, NORMAL BREATHING PATTERN. absent: Respiratory Distress - Cardiovascular Exam Cardiovascular Exam: REGULAR RHYTHM, +S1, +S2 - GI/Abdominal Exam GI & Abdominal Exam: Soft, Normal Bowel Sounds. absent: Hyperactive Bowel Sounds - Neurological Exam Neurological Exam: Alert, Awake, Oriented x3 - Psychiatric Exam Psychiatric exam: Normal Affect, Normal Mood. absent: Depressed - Skin Skin Exam: Dry, Intact, Normal Color Assessment and Plan - Assessment and Plan (Free Text) Assessment: 57 year old male with a past medical history of cad, chf, hypertension, diabetes, and hyperlipidemia presents to the hospital for acute pulmonary edema. Plan: 1. Acute pulmonary edema CXR:Stable cardiomegaly. No pulmonary vascular congestion, infiltrate, pleural effusion or pneumothorax evident. Troponin: .13, .20, .11 Medications: Heparin Drip 2.CAD -Aspirin 81mg PO Daily -Plavix 75mg PO Daily 3. COPD -Albuterol 1 puff INH RQ4 PRN -Duoneb 3ML inh rq4 [facility] 4. CHF -Lasix 40mg IVP BID Daily 5.Dyslipidemia -Crestor 40mg PO HS [facility] 6. Hypertension -Cozaar 50mg PO Daily -[id number] mg PO BID [facility] 7. DM -Amaryl 2MG poACB [facility] -ISS -[id number] PO Daily [facility] 8. Hypothyroidism -Synthroid 100mcg PO Daily [facility] PPX -Pepcid All managment per Dr. Jose Elias Blackmon, PGY-2
[2018-06-16] MEDS ORDERED: Potassium Chloride 20 mEq ER Tab PO ONE (21:34)
[2018-06-17] MEDS: Levothyroxine 100 MCG TAB PO SCH (05:45)
--- NOTE | 2018-06-17 06:36 | CP.PCM.PN ---
Subjective - Date & Time of Evaluation Date of Evaluation: 06/17/18 Time of Evaluation: 06:35 - Subjective Subjective: Pt seen and examined this morning at bedside. Pt denies chest pain, SOB, nausea, vomiting, diarrhea. Objective - Vital Signs/Intake and Output Vital Signs (last 24 hours): Temp Pulse Resp BP Pulse Ox 98.1 F 60 20 149/71 965 H 06/17/18 03:12 06/17/18 04:13 06/17/18 03:12 06/17/18 03:12 06/17/18 03:12 Intake and Output: 06/16/18 06/17/18 18:59 06:59 Intake Total 250 560.8 Output Total 650 300 Balance -400 260.8 - Medications Medications: Current Medications Albuterol (Ventolin Hfa 90 Mcg/Actuation (8 G)) 1 puff INH RQ4 PRN PRN Reason: Shortness of Breath Albuterol/Ipratropium (Duoneb 3 Mg/0.5 Mg (3 Ml) Ud) 3 ml INH RQ4 [facility] Last Admin: 06/17/18 00:00 Dose: Not Given Aspirin (Aspirin) 325 mg PO DAILY [facility] Last Admin: 06/16/18 09:38 Dose: 325 mg Clopidogrel Bisulfate (Plavix) 75 mg PO DAILY [facility] Last Admin: 06/16/18 09:38 Dose: 75 mg Diltiazem HCl (Cardizem Cd) 240 mg PO DAILY [facility] Last Admin: 06/16/18 09:37 Dose: 240 mg Famotidine (Pepcid) 20 mg PO DAILY [facility] Last Admin: 06/16/18 09:38 Dose: 20 mg Fluticasone Propionate (Flonase) 2 spr ALETHA DAILY [facility] Last Admin: 06/16/18 11:00 Dose: 1 spray Furosemide (Lasix) 40 mg IVP BID [facility] Last Admin: 06/16/18 18:33 Dose: 40 mg Glimepiride (Amaryl) 2 mg PO ACB [facility] Last Admin: 06/16/18 08:15 Dose: 2 mg Hydrochlorothiazide (Hydrodiuril) 25 mg PO DAILY [facility] Last Admin: 06/16/18 09:38 Dose: 25 mg Hydrocortisone (Anusol-Hc) 30 gm TOP BID [facility] Last Admin: 06/16/18 18:32 Dose: Not Given Ceftriaxone Sodium 1 gm/ (Sodium Chloride) 100 mls @ 100 mls/hr IVPB Q24H [facility]; Protocol Last Admin: 06/16/18 12:15 Dose: 100 mls/hr Heparin Sodium/Sodium Chloride (Heparin 28977 Units/250ml 1/2 Normal Saline) 25,000 units in 250 mls @ 10.08 mls/hr IV .Q24H PRN; Protocol PRN Reason: PROTOCOL Last Admin: 06/16/18 14:22 Dose: 12 units/kg/hr, 10.08 mls/hr Insulin Human Regular (Novolin R) 0 unit SC ACHS [facility]; Protocol Last Admin: 06/16/18 22:26 Dose: Not Given Lactic Acid (Lac-Hydrin 12% Lotion (225 G)) 0 gm TOP BID [facility] Last Admin: 06/16/18 19:00 Dose: Not Given Levothyroxine Sodium (Synthroid) 100 mcg PO DAILY@0630 [facility] Last Admin: 06/17/18 05:45 Dose: 100 mcg Losartan Potassium (Cozaar) 50 mg PO DAILY [facility] Last Admin: 06/16/18 09:38 Dose: 50 mg Metformin HCl (Glucophage) 1,000 mg PO BIDCC [facility] Last Admin: 06/16/18 18:00 Dose: 1,000 mg Metoprolol Succinate (Toprol Xl) 100 mg PO BID [facility] Last Admin: 06/16/18 19:00 Dose: Not Given Rosuvastatin Calcium (Crestor) 40 mg PO HS [facility] Last Admin: 06/16/18 22:25 Dose: 40 mg Sitagliptin Phosphate (Januvia) 100 mg PO DAILY [facility] Last Admin: 06/16/18 09:38 Dose: 100 mg - Labs Labs: 06/16/18 07:15 06/16/18 07:00 PT 13.9 SECONDS (9.7-12.2) H 06/15/18 03:43 INR 1.3 06/15/18 03:43 APTT 65 SECONDS (21-34) H D 06/16/18 03:36 - Constitutional Appears: No Acute Distress - Head Exam Head Exam: ATRAUMATIC, NORMOCEPHALIC - Eye Exam Eye Exam: EOMI - ENT Exam ENT Exam: Mucous Membranes Moist - Neck Exam Neck Exam: Full ROM - Respiratory Exam Respiratory Exam: Clear to Ausculation Bilateral, NORMAL BREATHING PATTERN. absent: Accessory Muscle Use, Respiratory Distress - Cardiovascular Exam Cardiovascular Exam: RRR, +S1, +S2. absent: Diastolic murmur, Murmur - GI/Abdominal Exam GI & Abdominal Exam: Soft, Normal Bowel Sounds - Extremities Exam Extremities Exam: Full ROM, Pedal Edema. absent: Tenderness - Neurological Exam Neurological Exam: Alert, Awake, Oriented x3 - Psychiatric Exam Psychiatric exam: Normal Affect, Normal Mood - Skin Skin Exam: Dry, Intact, Warm Assessment and Plan - Assessment and Plan (Free Text) Assessment: 1) Acute pulmonary edema Status: Acute (2) Respiratory distress Status: Acute (3) CAD (coronary artery disease) Status: Acute (4) COPD (chronic obstructive pulmonary disease) Status: Acute (5) Congestive heart failure Status: Acute (6) Dyslipidemia Status: Acute (7) HTN (hypertension) Status: Acute (8) Hx of CABG Status: Acute Plan: pt will likely require a BiV pacemaker in the future continue IV lasix ASA plavix diltiazem losartan Pt seen, examined, assessment and plan discussed with Dr Quan Gomez PGY1
[2018-06-17 07:30] LABS: BASO # 0.1 K/uL (0.0-0.2); BASO % 0.6 % (0.0-2.0); EOS # 0.3 K/uL (0.0-0.7); EOS % 3.3 % (0.0-4.0); HEMOGLOBIN 15.3 g/dL (12.0-18.0); LYMPH # 2.9 K/uL (1.0-4.3); LYMPH % 27.5 % (20.0-40.0); MEAN CELL VOLUME 80.9 fL (80.0-94.0); MEAN CORPUSCULAR HGB CONC 33.3 g/dL (33.0-37.0); MEAN PLATELET VOLUME 9.8 fL (7.2-11.7); MONO # 0.9 K/uL (0.0-0.8); MONO % 8.2 % (0.0-10.0); NEUT # 6.4 K/uL (1.8-7.0); NEUT % 60.4 % (50.0-75.0); NRBC % 0.1 % (0.0-2.0); RBC 5.66 Mil/uL (4.40-5.90); RED CELL DISTRIBUTION WIDTH 15.4 % (11.5-14.5); WHITE BLOOD COUNT 10.6 K/uL (4.8-10.8)
[2018-06-17] MEDS: (Novolin R) Insulin Human Regular 100 units/ml vial SC SCH ×4 (07:47→22:27)
[2018-06-17] MEDS: Albuterol-Ipratrop 3 mg / 0.5 (3 ml) UD INH SCH ×6 (07:59→23:34)
[2018-06-17] MEDS: Fluticasone Nasal 50 mcg/Spray NAS SCH (09:25)
[2018-06-17] MEDS: Ammonium Lactate 12% Lotion (225 g) TOP SCH ×2 (09:25→18:56)
[2018-06-17] MEDS: Hydrocortisone 2.5% Rectal Cream(30 gm) TOP SCH ×2 (09:25→18:55)
[2018-06-17] MEDS: diltiaZEM 240 mg/24 Hours CD Cap PO SCH (09:26)
[2018-06-17] MEDS: Metoprolol Succinate 100 mg XL Tab PO SCH ×2 (09:26→17:21)
--- NOTE | 2018-06-17 10:57 | CP.PCM.PN ---
Subjective - Date & Time of Evaluation Date of Evaluation: 06/17/18 Time of Evaluation: 10:55 - Subjective Subjective: Progress note. Attending: Dr. Moctezuma. Pt seen and examined at bedside. No acute distress. No events overnight. No complaints. No fevers, chills, vomiting, diarrhea. Objective - Vital Signs/Intake and Output Vital Signs (last 24 hours): Temp Pulse Resp BP Pulse Ox 98.7 F 79 20 137/75 95 06/17/18 07:30 06/17/18 08:00 06/17/18 07:30 06/17/18 09:26 06/17/18 07:30 Intake and Output: 06/17/18 06/17/18 06:59 18:59 Intake Total 560.8 320 Output Total 300 500 Balance 260.8 -180 - Medications Medications: Current Medications Albuterol (Ventolin Hfa 90 Mcg/Actuation (8 G)) 1 puff INH RQ4 PRN PRN Reason: Shortness of Breath Albuterol/Ipratropium (Duoneb 3 Mg/0.5 Mg (3 Ml) Ud) 3 ml INH RQ4 [facility] Last Admin: 06/17/18 07:59 Dose: Not Given Aspirin (Aspirin) 325 mg PO DAILY [facility] Last Admin: 06/17/18 09:26 Dose: 325 mg Clopidogrel Bisulfate (Plavix) 75 mg PO DAILY [facility] Last Admin: 06/17/18 09:26 Dose: 75 mg Diltiazem HCl (Cardizem Cd) 240 mg PO DAILY [facility] Last Admin: 06/17/18 09:26 Dose: 240 mg Famotidine (Pepcid) 20 mg PO DAILY [facility] Last Admin: 06/17/18 09:26 Dose: 20 mg Fluticasone Propionate (Flonase) 2 spr ALETHA DAILY [facility] Last Admin: 06/17/18 09:25 Dose: Not Given Furosemide (Lasix) 40 mg IVP BID [facility] Last Admin: 06/17/18 09:26 Dose: 40 mg Glimepiride (Amaryl) 2 mg PO ACB [facility] Last Admin: 06/17/18 07:48 Dose: 2 mg Hydrochlorothiazide (Hydrodiuril) 25 mg PO DAILY [facility] Last Admin: 06/17/18 09:26 Dose: 25 mg Hydrocortisone (Anusol-Hc) 30 gm TOP BID [facility] Last Admin: 06/17/18 09:25 Dose: Not Given Ceftriaxone Sodium 1 gm/ (Sodium Chloride) 100 mls @ 100 mls/hr IVPB Q24H [facility]; Protocol Last Admin: 06/16/18 12:15 Dose: 100 mls/hr Heparin Sodium/Sodium Chloride (Heparin 74689 Units/250ml 1/2 Normal Saline) 25,000 units in 250 mls @ 10.08 mls/hr IV .Q24H PRN; Protocol PRN Reason: PROTOCOL Last Admin: 06/16/18 14:22 Dose: 12 units/kg/hr, 10.08 mls/hr Insulin Human Regular (Novolin R) 0 unit SC ACHS [facility]; Protocol Last Admin: 06/17/18 07:47 Dose: 2 units Lactic Acid (Lac-Hydrin 12% Lotion (225 G)) 0 gm TOP BID [facility] Last Admin: 06/17/18 09:25 Dose: Not Given Levothyroxine Sodium (Synthroid) 100 mcg PO DAILY@0630 [facility] Last Admin: 06/17/18 05:45 Dose: 100 mcg Losartan Potassium (Cozaar) 50 mg PO DAILY [facility] Last Admin: 06/17/18 09:26 Dose: 50 mg Metformin HCl (Glucophage) 1,000 mg PO BIDCC [facility] Last Admin: 06/17/18 07:48 Dose: 1,000 mg Metoprolol Succinate (Toprol Xl) 100 mg PO BID [facility] Last Admin: 06/17/18 09:26 Dose: 100 mg Rosuvastatin Calcium (Crestor) 40 mg PO HS [facility] Last Admin: 06/16/18 22:25 Dose: 40 mg Sitagliptin Phosphate (Januvia) 100 mg PO DAILY [facility] Last Admin: 06/17/18 09:26 Dose: 100 mg - Labs Labs: 06/17/18 07:05 06/16/18 07:00 PT 13.9 SECONDS (9.7-12.2) H 06/15/18 03:43 INR 1.3 06/15/18 03:43 APTT 69 SECONDS (21-34) H 06/17/18 07:05 - Constitutional Appears: Non-toxic, No Acute Distress - Head Exam Head Exam: ATRAUMATIC, NORMAL INSPECTION, NORMOCEPHALIC - Eye Exam Eye Exam: EOMI - ENT Exam ENT Exam: Mucous Membranes Moist - Neck Exam Neck Exam: Full ROM, Normal Inspection - Respiratory Exam Respiratory Exam: NORMAL BREATHING PATTERN. absent: Respiratory Distress - Cardiovascular Exam Cardiovascular Exam: +S1, +S2 - GI/Abdominal Exam GI & Abdominal Exam: Soft, Normal Bowel Sounds. absent: Tenderness - Extremities Exam Extremities Exam: Full ROM, Normal Inspection - Neurological Exam Neurological Exam: Alert, Awake, Oriented x3 - Psychiatric Exam Psychiatric exam: Normal Affect, Normal Mood - Skin Skin Exam: Dry, Intact, Normal Color, Warm Assessment and Plan - Assessment and Plan (Free Text) Assessment: This is a 57 yo male with 1. Acute pulmonary edema CXR: Stable cardiomegaly. No pulmonary vascular congestion, infiltrate, pleural effusion or pneumothorax evident. Troponin: .13, .20, .11 1. Elevated troponins -rule out ACS -pt placed on heparin drip -stopped today, pt is on dual anti-platelet tx -cardiology consult. Dr. Glass. recs appreciated. 2.CAD -Aspirin 81 mg PO Daily -Plavix 75 mg PO Daily 3. COPD -Albuterol 1 puff INH RQ4 PRN -Duoneb 3ML inh rq4 [facility] 4. CHF -Lasix 40mg IVP BID Daily 5.Dyslipidemia -Crestor 40mg PO HS [facility] 6. Hypertension -losartan 50 mg PO Daily -[id number] mg PO BID [facility] 7. DM -Amaryl 2MG poACB [facility] -ISS -sitagliptin 100 mg PO Daily [facility] 8. Hypothyroidism -Synthroid 100mcg PO Daily [facility] 9. GI/DVT PPX -Pepcid All managment per Dr. Moctezuma
[2018-06-17] MEDS ORDERED: Potassium Chloride 20 mEq ER Tab PO ONE (21:06)
--- NOTE | 2018-06-18 00:59 | CON ---
DATE: 06/17/2018 CONSULTATION SERVICE: Clinical cardiac electrophysiology. PHYSICIAN PERFORMING CONSULTATION: Adryan Salguero MD PHYSICIAN REQUESTING CONSULTATION: Yuri Glass MD REASON FOR CONSULTATION: Coronary artery disease with resulting ischemic cardiomyopathy, CHF. HISTORY OF PRESENT ILLNESS: Mr. Wander Olivier is a very pleasant 57-year-old male with a history of coronary artery disease, status post CABG several years ago, hypertension, diabetes, hyperlipidemia who had a recent hospitalization in 04/2018 to [facility] for congestive failure. At that time, he had a cardiac catheterization by Dr. Glass which demonstrated patent grafts with ejection fraction of about 33%. It is unclear if he has had a prior echocardiogram which demonstrated left ventricular dysfunction. He was diuresed at that time and was sent home on appropriate medical regimen which he had been taking prior as well. Despite optimal medications, the patient continues to have heart failure symptoms and presents again today to [facility] with congestive heart failure. The patient says that he is compliant with his medications. He denies any chest discomfort, shortness of breath or other issues. He denies palpitations, lightheadedness, dizziness, or syncope. His EKG demonstrates sinus rhythm with antegrade conduction and a left bundle-branch block of approximately 140 milliseconds. Telemetry demonstrates sinus rhythm, no ventricular arrhythmia noted, and no atrial arrhythmia noted either. REVIEW OF SYSTEMS: A comprehensive 10-point review of system was performed and notable for what was seen above. MEDICATIONS: Include beta cami, afterload reduction, aspirin, Plavix, and hyperlipidemic medications. PHYSICAL EXAMINATION: GENERAL: The patient is alert, oriented. Conversant appropriate. VITAL SIGNS: The patient's blood pressure is 130s to 140s over 60s, heart rate of 60 to 70, respiratory rate 14. NECK: Supple. PULMONARY: Lungs are clear. CHEST: Midline incision noted. CARDIOVASCULAR: Regular S1 and S2. No murmurs. GASTROINTESTINAL: Abdomen is soft. EXTREMITIES: No edema. SKIN: No rashes. NEUROLOGIC: Grossly intact. PSYCHIATRIC: Normal affect. LABORATORY DATA: The patient's creatinine is 1. His CBC demonstrates a white count of 10.6, hemoglobin of 15.3, platelet count of 265. ASSESSMENT: In summary, Mr. Wander Olivier is a very pleasant 57-year-old gentleman with coronary artery disease and coronary artery bypass graft in the past with ischemic cardiomyopathy. The exact duration of the ischemic cardiomyopathy is unknown to me at this time. It appears that he has a left ventricular ejection of 32% from 04/2018 and in particular catheterization at the end of 04/2018. He has been taking his medications he admits before and after this particular catheterization and hospitalization. If indeed he has had an ejection fraction less than 35% for longer than three months on optimal medical therapy, then he certainly is a candidate for defibrillator. Additionally, because he has congestive heart failure symptoms and is class 2 to 3 in nature and had a left bundle about 140 milliseconds, he is also a candidate for a cardiac resynchronization therapy defibrillator. If, however, he has not been treated for three months since initial diagnosis of left ventricular ejection fraction less than 35%, we will have to repeat his echocardiogram at the end of 07/2018 or early 08/2018. If he continues to have left ventricular dysfunction and ejection fraction less than 35%, then he will remain a candidate for cardiac resynchronization therapy defibrillator. I discussed this at length with the patient and described the potential benefits of device based therapy, insertion technique including risks and benefits. He understands this and I reached down to Dr. Glass to assess how long the patient has had left ventricular dysfunction. Regardless, he can be set up for this as an outpatient, and we can have it performed as an outpatient as well. I will reach out to him, and the best number to contact him, he mentioned is [phone]. Thank you very much for allowing me to participate in the care of this patient. Adryan Salguero MD
[2018-06-18] MEDS: Albuterol-Ipratrop 3 mg / 0.5 (3 ml) UD INH SCH ×3 (03:48→11:02)
[2018-06-18 04:56] VITALS: O2SAT 96
[2018-06-18] MEDS: Levothyroxine 100 MCG TAB PO SCH (06:34)
--- NOTE | 2018-06-18 06:58 | CP.PCM.PN ---
Subjective - Date & Time of Evaluation Date of Evaluation: 06/18/18 Time of Evaluation: 06:57 - Subjective Subjective: Progress Note: Dr. Moctezuma Service Patient seen and examined at bedside. Per nursing no acute events occurred overnight. Patient reports a little breathing discomfort. Patient denies any chest pain, abdominal pain, fevers, chills, headaches, dizziness, syncopal episodes, or any other complaints. Objective - Vital Signs/Intake and Output Vital Signs (last 24 hours): Temp Pulse Resp BP Pulse Ox 98.1 F 76 20 150/81 96 06/18/18 04:55 06/18/18 04:55 06/18/18 04:55 06/18/18 04:55 06/18/18 04:55 Intake and Output: 06/17/18 06/18/18 18:59 06:59 Intake Total 900.64 640 Output Total 500 500 Balance 400.64 140 - Medications Medications: Current Medications Albuterol (Ventolin Hfa 90 Mcg/Actuation (8 G)) 1 puff INH RQ4 PRN PRN Reason: Shortness of Breath Albuterol/Ipratropium (Duoneb 3 Mg/0.5 Mg (3 Ml) Ud) 3 ml INH RQ4 [facility] Last Admin: 06/18/18 03:48 Dose: Not Given Aspirin (Aspirin) 325 mg PO DAILY [facility] Last Admin: 06/17/18 09:26 Dose: 325 mg Clopidogrel Bisulfate (Plavix) 75 mg PO DAILY [facility] Diltiazem HCl (Cardizem Cd) 240 mg PO DAILY [facility] Last Admin: 06/17/18 09:26 Dose: 240 mg Famotidine (Pepcid) 20 mg PO DAILY [facility] Last Admin: 06/17/18 09:26 Dose: 20 mg Fluticasone Propionate (Flonase) 2 spr ALETHA DAILY [facility] Last Admin: 06/17/18 09:25 Dose: Not Given Furosemide (Lasix) 40 mg IVP BID [facility] Last Admin: 06/17/18 18:56 Dose: 40 mg Glimepiride (Amaryl) 2 mg PO ACB [facility] Last Admin: 06/17/18 07:48 Dose: 2 mg Hydrochlorothiazide (Hydrodiuril) 25 mg PO DAILY [facility] Last Admin: 06/17/18 09:26 Dose: 25 mg Hydrocortisone (Anusol-Hc) 30 gm TOP BID [facility] Last Admin: 06/17/18 18:55 Dose: Not Given Ceftriaxone Sodium 1 gm/ (Sodium Chloride) 100 mls @ 100 mls/hr IVPB Q24H [facility]; Protocol Last Admin: 06/17/18 12:21 Dose: 100 mls/hr Insulin Human Regular (Novolin R) 0 unit SC ACHS [facility]; Protocol Last Admin: 06/17/18 22:27 Dose: Not Given Lactic Acid (Lac-Hydrin 12% Lotion (225 G)) 0 gm TOP BID [facility] Last Admin: 06/17/18 18:56 Dose: Not Given Levothyroxine Sodium (Synthroid) 100 mcg PO DAILY@0630 [facility] Last Admin: 06/18/18 06:34 Dose: 100 mcg Losartan Potassium (Cozaar) 50 mg PO DAILY [facility] Last Admin: 06/17/18 09:26 Dose: 50 mg Metformin HCl (Glucophage) 1,000 mg PO BIDCC [facility] Last Admin: 06/17/18 17:25 Dose: 1,000 mg Metoprolol Succinate (Toprol Xl) 100 mg PO BID [facility] Last Admin: 06/17/18 17:21 Dose: 100 mg Rosuvastatin Calcium (Crestor) 40 mg PO HS [facility] Last Admin: 06/17/18 21:02 Dose: 40 mg Sitagliptin Phosphate (Januvia) 100 mg PO DAILY [facility] Last Admin: 06/17/18 09:26 Dose: 100 mg - Labs Labs: 06/17/18 07:05 06/16/18 07:00 PT 13.9 SECONDS (9.7-12.2) H 06/15/18 03:43 INR 1.3 06/15/18 03:43 APTT 69 SECONDS (21-34) H 06/17/18 07:05 - Head Exam Head Exam: ATRAUMATIC, NORMAL INSPECTION - Eye Exam Eye Exam: EOMI, Normal appearance, PERRL Pupil Exam: NORMAL ACCOMODATION - ENT Exam ENT Exam: Mucous Membranes Moist, Normal Oropharynx - Respiratory Exam Respiratory Exam: Clear to Ausculation Bilateral, NORMAL BREATHING PATTERN. absent: Prolonged Expiratory Phase, Respiratory Distress - Cardiovascular Exam Cardiovascular Exam: REGULAR RHYTHM, RRR, +S1, +S2. absent: Rubs - GI/Abdominal Exam GI & Abdominal Exam: Soft, Normal Bowel Sounds. absent: Hyperactive Bowel Sounds - Extremities Exam Extremities Exam: Normal Inspection. absent: Joint Swelling, Pedal Edema - Back Exam Back Exam: NORMAL INSPECTION. absent: CVA tenderness (R), paraspinal tenderness - Neurological Exam Neurological Exam: Alert, Awake, Oriented x3 - Psychiatric Exam Psychiatric exam: Normal Affect, Normal Mood. absent: Depressed - Skin Skin Exam: Dry, Intact Assessment and Plan - Assessment and Plan (Free Text) Assessment: 57 year old male with a past medical history of cad, chf, hypertension, diabetes, and hyperlipidemia presents to the hospital for acute pulmonary edema. Plan: 1. Acute pulmonary edema CXR:Stable cardiomegaly. No pulmonary vascular congestion, infiltrate, pleural effusion or pneumothorax evident. EKG:Sinus Rhythm (91), ST/T Changes (lat ischic changes, unchanged from 04/30/18) Troponin: .13, .20, .11 Medications: Heparin Drip discontinued 2.CAD -Aspirin 81mg PO Daily -Plavix 75mg PO Daily 3. COPD -Albuterol 1 puff INH RQ4 PRN -Duoneb 3ML inh rq4 [facility] 4. CHF -Lasix 40mg IVP BID Daily 5.Dyslipidemia -Crestor 40mg PO HS [facility] 6. Hypertension -Cozaar 50mg PO Daily -[id number] mg PO BID [facility] 7. DM -Amaryl 2MG poACB [facility] -ISS -[id number] PO Daily [facility] 8. Hypothyroidism -Synthroid 100mcg PO Daily [facility] PPX -Pepcid All managment per Dr. Moctezuma Discharge Instructions: 1. F/u with PMD within 5 days. 2. F/u with Dr. Salguero for cardiac resynchronization therapy defibrillator. Patient will have repeat echocardiogram end of July or early August and determine if EF has improved. 3. Return to hospital for any new or worsening symptoms. Medications: 1.Metoprolol 100mg PO BID, #60, No refills 2.Januvia 100mg PO DAILY, #30, No refills 3.Crestor 40mg PO HS, #30, No refills 4. Glucophage 1,000mg PO BID, #60, No refills 5. Synthroid 100mcg, #30, No refills 6.Amaryl 2mg PO ACB, #30, No refills 7.Hydrochlorothiazide 25mg PO Daily, #30, No refills 8.Cardizem 240mg DISCONTINUE 9. Plavix 75mg PO Daily, #30, No refills 10. Laxix 40mg PO Daily, #30, No refills 11. Aspirin 325mg PO Daily, #30, No refills Patient will be discontinued from Cardizem and start 50mg PO TID and Isosorbide mononitrate 10 [address] PO TID per Dr. Quan hart (spoke with Resident). Alcon Blackmon, PGY-2
[2018-06-18 07:32] LABS: BASO % 0.5 % (0.0-2.0); EOS # 0.3 K/uL (0.0-0.7); EOS % 3.4 % (0.0-4.0); HEMOGLOBIN 15.3 g/dL (12.0-18.0); LYMPH # 2.5 K/uL (1.0-4.3); LYMPH % 24.5 % (20.0-40.0); MEAN CELL VOLUME 81.6 fL (80.0-94.0); MEAN CORPUSCULAR HEMOGLOBIN 26.9 pg (27.0-31.0); MEAN PLATELET VOLUME 9.4 fL (7.2-11.7); MONO # 0.8 K/uL (0.0-0.8); MONO % 7.7 % (0.0-10.0); NEUT # 6.4 K/uL (1.8-7.0); NEUT % 63.9 % (50.0-75.0); NRBC % 0.1 % (0.0-2.0); RBC 5.66 Mil/uL (4.40-5.90); RED CELL DISTRIBUTION WIDTH 15.4 % (11.5-14.5); WHITE BLOOD COUNT 10.1 K/uL (4.8-10.8)
[2018-06-18 07:57] LABS: ALB/GLOB RATIO 1.4 (1.0-2.1); ALBUMIN 4.1 g/dL (3.5-5.0); ALT/SGPT 28 U/L (21-72); AST/SGOT 33 U/L (17-59); BLOOD UREA NITROGEN 25 mg/dL (9-20); CALCIUM 9.3 mg/dl (8.6-10.4); GFR NON-AFRICAN AMERICAN > 60
[2018-06-18] MEDS: (Novolin R) Insulin Human Regular 100 units/ml vial SC SCH ×2 (08:19→12:25)
[2018-06-18 08:50] VITALS: PULSE 69; TEMP 98.2
[2018-06-18] MEDS ORDERED: Potassium Chloride 20 mEq ER Tab PO ONE (09:30)
[2018-06-18] MEDS: diltiaZEM 240 mg/24 Hours CD Cap PO SCH (10:44)
[2018-06-18] MEDS: Metoprolol Succinate 100 mg XL Tab PO SCH (10:44)
[2018-06-18] MEDS: Fluticasone Nasal 50 mcg/Spray NAS SCH (10:48)
[2018-06-18] MEDS: Hydrocortisone 2.5% Rectal Cream(30 gm) TOP SCH (10:49)
[2018-06-18 10:50] VITALS: BP 136/80
[2018-06-18] MEDS: Ammonium Lactate 12% Lotion (225 g) TOP SCH (10:50)
--- NOTE | 2018-06-18 19:07 | CP.PCM.PN ---
Subjective - Date & Time of Evaluation Date of Evaluation: 06/18/18 Time of Evaluation: 13:00 - Subjective Subjective: Pt discharged before evaluation today Objective - Vital Signs/Intake and Output Vital Signs (last 24 hours): Temp Pulse Resp BP Pulse Ox 98.2 F 69 20 136/80 96 06/18/18 08:00 06/18/18 08:00 06/18/18 08:00 06/18/18 10:44 06/18/18 08:00 Intake and Output: 06/18/18 06/19/18 18:59 06:59 Intake Total 100 Balance 100 - Labs Labs: 06/18/18 07:09 06/18/18 07:09 PT 13.9 SECONDS (9.7-12.2) H 06/15/18 03:43 INR 1.3 06/15/18 03:43 APTT 69 SECONDS (21-34) H 06/17/18 07:05 Assessment and Plan - Assessment and Plan (Free Text) Assessment: 1) Acute pulmonary edema Status: Acute (2) Respiratory distress Status: Acute (3) CAD (coronary artery disease) Status: Acute (4) COPD (chronic obstructive pulmonary disease) Status: Acute (5) Congestive heart failure Status: Acute (6) Dyslipidemia Status: Acute (7) HTN (hypertension) Status: Acute (8) Hx of CABG Status: Acute Plan: pt will likely require a BiV pacemaker in the future medications on discharge ASA plavix losartan hydralazine 50 TID Isosorbide mononitrate 10 TID Assessment and plan discussed with Dr Quan Gomez PGY1, Internal Medicine Resident
--- NOTE | 2018-06-19 08:02 | PCM.HF ---
Heart Failure Core Measure - Heart Failure Ejection Fraction: 40 % or Greater GUALBERTO Inhibitor Prescribed: No Contraindication/Reason for not providing: on on gualberto Beta-Doris Prescribed: Metoprolol Succinate Angiotensin II Receptor Doris Prescribed: Yes AnticoagulationTherapy for Atrial Fibrillation/Atrialflutter: No Contraindication/Reason for not providing: no hx of a fib Aldosterone Antagonist Prescribed: No Contraindication/Reason for not providing: ef.45 Hydralazine Nitrate Prescribed: Yes Implantable Cardioverter Defibrillator Therapy: No Contraindication/Reason for not providing: ef>45 Cardiac Resynchronization Therapy Prescribed: No Contraindication/Reason for not providing: ef>45 - Follow up Will be discharged to: Home Follow Up Date (must be within 7 days from discharge): 06/23/18 Follow Up Time: 08:00
== END 2018-06-18 16:05 | disposition home or self-care (01) | DRG 293 ==
LOC: C.ER 03:30 → C.9E 04:51 → C.6T 05:08
PROVIDERS: ADMIT Internal Medicine Pulmonary Disease; ATTEND Internal Medicine Pulmonary Disease
DX: I11.0 Hypertensive heart disease with heart failure (principal); I50.9 Heart failure, unspecified; I25.5 Ischemic cardiomyopathy; I25.10 Atherosclerotic heart disease of native coronary artery without angina pectoris; I44.7 Left bundle-branch block, unspecified; E11.9 Type 2 diabetes mellitus without complications; E87.6 Hypokalemia; J44.9 Chronic obstructive pulmonary disease, unspecified; E03.9 Hypothyroidism, unspecified; E78.5 Hyperlipidemia, unspecified; Z79.84 Long term (current) use of oral hypoglycemic drugs; Z79.02 Long term (current) use of antithrombotics/antiplatelets; Z79.890 Hormone replacement therapy; Z79.82 Long term (current) use of aspirin; Z79.899 Other long term (current) drug therapy; Z87.891 Personal history of nicotine dependence; Z95.1 Presence of aortocoronary bypass graft